=== PATIENT | female | born 1990 | race Caucasian/White ===

== ENCOUNTER 2021-01-06 14:29 | Outpatient (REF) | payer OTHER, SELFPAY ==
[2021-01-06 17:17] LABS: Syphilis Screen Nonreactive (Nonreactive)
[2021-01-07 01:47] LABS: CT PCR NOT DETECTED (Not Detect.); NG PCR NOT DETECTED (Not Detect.)
[2021-01-07 09:09] LABS: BV Int Neg Control Negative (Negative); BV Int Pos Control Positive (Positive)
[2021-01-08 07:56] LABS: ~HepC Num1 0.06 S/CO (0.00-0.79); ~Hepatitis C Antibody Nonreactive (Nonreactive)
[2021-01-08 08:42] LABS: HBsAGNum1 0.23 S/CO (0.00-0.99); HIV AB/AG Nonreactive (Nonreactive); HIV Num 1 0.06 S/CO (0.00-0.99); Hepatitis B Surface Antigen Negative (Negative)
== END 2021-01-06 14:30 | disposition home or self-care (01) ==
LOC: HO.LAB 14:29
PROVIDERS: Visit Provider Advanced Practice Midwife
DX: Z01.419 Encounter for gynecological examination (general) (routine) without abnormal findings (principal); Z11.4 Encounter for screening for human immunodeficiency virus [HIV]; Z11.3 Encounter for screening for infections with a predominantly sexual mode of transmission; Z01.84 Encounter for antibody response examination; Z20.2 Contact with and (suspected) exposure to infections with a predominantly sexual mode of transmission; E66.01 Morbid (severe) obesity due to excess calories; Z68.41 Body mass index [BMI] 40.0-44.9, adult
CPT/HCPCS: 36415; 86780; 86803; 87340; 87389; 87480; 87491; 87510; 87591; 87660; 88142

== ENCOUNTER 2021-07-03 15:58 | Emergency (ER) | payer OTHER, SELFPAY ==
--- NOTE | ~2021-07-03 | CT_ITS ---
EXAMINATION: CT HEAD WITHOUT CONTRAST CLINICAL INFORMATION: Dysarthria, rule out CVA. COMPARISON: No similar priors. TECHNIQUE: Contiguous axial imaging was performed from the skull base to vertex without intravenous administration of contrast. This CT examination was performed using dose optimization techniques as appropriate, variously including the following: *Automated exposure control *Adjustment of mA and/or kV according to patient size (this includes techniques or standardized protocols for targeted exams where dose is matched to indication/reason for exam; i.e. extremities or head) *Use of iterative reconstruction technique DLP: 786 mGy-cm FINDINGS: There is no evidence of acute intracranial hemorrhage or edematous territorial infarction. There is no abnormal attenuation within the brain parenchyma. Chapman-white matter differentiation is preserved. The ventricles are normal in size and configuration. No evidence for obstructive hydrocephalus. No abnormal mass effect or midline shift. No extra-axial fluid collections. No acute soft tissue or osseous abnormalities. Mild mucosal thickening of the paranasal sinuses. The mastoids are clear. CT/CT head/brain wo con IMPRESSION: No evidence of acute intracranial hemorrhage or edematous territorial infarction.
--- NOTE | 2021-07-03 16:20 | ED.NEUROSD ---
HPI - Neuro Symptoms/Deficit General Chief Complaint: Neuro Symptoms/Deficit Stated Complaint: Numbness Time Seen by Provider: 07/03/21 16:10 Source: patient and family Mode of arrival: ambulatory Limitations: no limitations History of Present Illness HPI Narrative: Patient with no significant medical history history under increased stress lately patient's boyfriend noticed patient unable to get the right words out since 13:30 today patient had difficulty in getting the words out but punctuation was normal. Also complaining of numbness on the right side no facial asymmetry no focal weakness patient very tearful in the ER also complaining of mild headache for last few days all over the head with questionable history of migraine Related Data Previous Rx's Medication Instructions Recorded norethindrone acetate 1 mg-ethinyl 1 tab PO DAILY 21 Days #21 tab 10/15/20 estradiol 20 mcg tablet () norethindrone 1 mg-ethinyl 1 tab PO DAILY #84 tab 01/06/21 estradiol 20 mcg ()-iron 75 mg (7) tablet ( FE 09/16 ()) fluconazole 150 mg tablet 150 mg PO DAILY #1 tab 01/13/21 (Diflucan) Allergies Allergy/AdvReac Type Severity Reaction Status Date / Time No Known Allergies Allergy Verified 01/06/21 14:34 Review of Systems Review of Systems: Yes all other systems are reviewed and are negative PMF Past Medical History Medical History Asthma Surgical History Hx of cholecystectomy Family History Family History Paternal Grandmother Thyroid cancer Maternal Grandmother Breast cancer Social History Social History Alcohol intake: current Alcohol intake frequency: holidays/special occasions only Advance Directives: No Advance Directives Information Provided: No Sexual orientation: Straight/Heterosexual Gender identity: Female Physical Exam Vital Signs: Vital Signs: Last Vital Signs Temp 98 F 07/03/21 16:25 Pulse 60 07/03/21 18:04 Resp 18 07/03/21 18:04 BP 105/64 07/03/21 18:04 Pulse Ox 96 07/03/21 18:04 Body Mass Index 0.0 Appearance: Alert. Oriented X3. No acute distress. Anxious and tearful Eyes: PERRLA, No Nystagmus ENT: Pharynx normal. Oral Mucosa moist Neck: Normal inspection. Neck supple. CVS: Normal heart rate and rhythm. Pulses normal. Respiratory: No respiratory distress. Equal air entry bilateral, no wheezing/rales/rhonchi Abdomen: Soft and nontender. Bowel sounds are present, no mass palpable, no CVA tenderness Skin: Skin warm and dry. Normal skin color. Normal skin turgor. Extremities: No lower extremity edema. No calf tenderness Neuro: Oriented X 3. No motor deficit. No sensory deficit.No cerebellar signs , cranial nerves II-XII intact patient is speaking slowly with normal punctuation symptom onset is normally some time taking time to answer MDM - Neuro Symptoms/Deficit MDM Narrative Medical decision making narrative: Patient no significant past medical history comes to the ER for difficulty in speaking with normal articulation is very tearful in the ER under increased stress no other focal deficit noticed clinically patient has psychogenic neurological symptoms patient ambulatory in the ER will do CT head. 1740 patient back to normal speaking full sentences. Nauseated vomited 2 times with increased anxiety patient denies any headache refused to get CTA head and neck feels much better now ambulatory in the ER patient advised to come back to the ER in case any focal weakness . Lab Data Result diagrams: 07/03/21 16:33 07/03/21 16:33 Labs: Lab Results 07/03/21 07/03/21 Range/Units 16:33 16:33 WBC 6.5 (4.8-10.8) X10*3/uL RBC 4.18 L (4.20-5.50) X10*6/uL Hgb 12.0 (12.0-16.0) g/dl Hct 36.2 L (37.0-47.0) % MCV 86.6 (80.0-98.0) fL MCH 28.7 (27.0-33.0) pg MCHC 33.1 (31.0-35.0) g/dl RDW 12.9 (11.0-16.0) % Plt Count 263 (160-400) X10*3/uL MPV 9.8 (9.4-12.3) fL Immature Gran % (Auto) 0.2 (0.0-0.4) % Neut % (Auto) 65.2 (45-73) % Lymph % (Auto) 26.2 (20-40) % Gregg % (Auto) 5.9 (2-11) % Eos % (Auto) 2.3 (0-4) % Baso % (Auto) 0.2 (0-2) % Lymph # (Auto) 1.7 (1.2-4.9) X10*3/uL Gregg # (Auto) 0.4 (0.1-1.2) X10*3/uL Eos # (Auto) 0.2 (0.0-0.4) X10*3/uL Baso # (Auto) 0.0 (0.0-0.2) X10*3/uL Abs Immat Gran (auto) 0.01 (0.00-0.03) X10*3/uL Absolute Neuts (auto) 4.2 (2.0-8.3) x10*3/uL Absolute Nucleated RBC 0.000 (0.0-0.012) X10*3/uL Nucleated RBC % (auto) 0.0 (0.0-0.2) /100WBC Sodium 139 (135-145) mmol/L Potassium 4.0 (3.3-5.1) mmol/L Chloride 106 (96-108) mmol/L Carbon Dioxide 24 (22-29) mmol/L Anion Gap 13 (12-20) BUN 8 L (9-16) mg/dL Creatinine 0.68 (0.5-1.4) mg/dL Estim Creat Clear Calc TNP Estimated GFR > 60 Random Glucose 108 (60-115) mg/dL Calcium 8.9 (8.4-10.2) mg/dL Beta HCG, Quant < 2 mIU/mL NIH Stroke Scale Internal: Initial- Upon Arrival Level of Consciousness: Alert Level of Consciousness Questions: Answers both questions correctly Level of Consciousness Commands: Performs both tasks correctly Best Gaze: Normal Visual: No visual loss Facial Palsy: Normal Motor Arm (Right): No drift Motor Arm (Left): No drift Motor Leg (Right): No drift Motor Leg (Left): No drift Limb Ataxia: Absent Sensory: Normal Best Language: No aphasia Dysarthia: Normal Extinction and Inattention: No abnormality Score: 0 Discharge Plan Discharge Clinical Impression: Anxiety, Dysarthria Patient Disposition: Home, Self-Care Instructions: Anxiety (ED) Additional Instructions: Rest at home Follow-up with your PCP if any concerns Report to the ER if any focal weakness Prescriptions: No Action norethindrone ac-eth estradiol [09/16 (21)] 1-20 mg-mcg tablet 1 tab PO DAILY 21 Days Qty: 21 RF: 2 fluconazole [Diflucan] 150 mg tablet 150 mg PO DAILY Qty: 1 RF: 0 norethindrone-e.estradiol-iron [09/16 (28)] 1 mg-20 mcg (21)/75 mg (7) tablet 1 tab PO DAILY Qty: 84 RF: 4 Interventions: ED Discharge Assessment Last Done: 07/03/21 18:12 Discharge Date/Time: 07/03/21 18:13
[2021-07-03 16:25] VITALS: BP 128/75; PULSE 59; RESP 18; TEMP 36.6; O2SAT 98
[2021-07-03 16:44] LABS: MANUAL DIFF FLAG NO
[2021-07-03 16:48] LABS: Basophils Percent Auto 0.2 % (0-2); Eosinophils Absolute Auto 0.2 X10*3/uL (0.0-0.4); Eosinophils Percent Auto 2.3 % (0-4); Hematocrit 36.2 % (37.0-47.0); Imm Gran Abs Auto 0.01 X10*3/uL (0.00-0.03); Imm Gran Pct Auto 0.2 % (0.0-0.4); Lymphocytes Absolute Auto 1.7 X10*3/uL (1.2-4.9); Lymphocytes Percent Auto 26.2 % (20-40); Mean Corpuscular HGB Conc 33.1 g/dl (31.0-35.0); Mean Corpuscular Hemoglobin 28.7 pg (27.0-33.0); Mean Corpuscular Volume 86.6 fL (80.0-98.0); Mean Platelet Volume 9.8 fL (9.4-12.3); Monocytes Absolute Auto 0.4 X10*3/uL (0.1-1.2); Monocytes Percent Auto 5.9 % (2-11); Neutrophils Absolute Auto 4.2 x10*3/uL (2.0-8.3); Neutrophils Percent Auto 65.2 % (45-73); Platelet Count 263 X10*3/uL (160-400); Red Blood Count 4.18 X10*6/uL (4.20-5.50); Red Cell Distribution Width 12.9 % (11.0-16.0); White Blood Count 6.5 X10*3/uL (4.8-10.8)
[2021-07-03 17:19] LABS: Anion Gap 13 (12-20); Blood Urea Nitrogen 8 mg/dL (9-16); Calcium 8.9 mg/dL (8.4-10.2); Carbon Dioxide 24 mmol/L (22-29); Chloride 106 mmol/L (96-108); Estimated Glomerular Filt Rate > 60; Glucose Random 108 mg/dL (60-115); Sodium 139 mmol/L (135-145)
[2021-07-03 17:27] LABS: HCG Quantitative < 2 mIU/mL
[2021-07-03] MEDS: Ondansetron ODT 4 MG TAB.RAPDIS TRANSLINGU (18:01)
--- NOTE | 2021-07-03 18:02 | PC.NURSE ---
patient awake and alert. skin pwd. resp even and non labored. neuros intact. denies pain. anwerings questions with ya or no. patient w/ flat affect. denies si/hi. states she feels safe at home. states she wants to be discharged. discharge paperwork reviewed with patient, pt then starting vomiting bile. physician aware
[2021-07-03 18:04] VITALS: BP 105/64; PULSE 60; RESP 18; O2SAT 96
== END 2021-07-03 18:13 | disposition home or self-care (01) ==
PROVIDERS: Emergency Provider Internal Medicine; PCP Internal Medicine
DX: F41.1 Generalized anxiety disorder (principal); R47.1 Dysarthria and anarthria; R20.0 Anesthesia of skin; R29.700 NIHSS score 0; Z79.899 Other long term (current) drug therapy
CPT/HCPCS: 36415; 70450; 80048; 84702; 85025; 99284

== ENCOUNTER → 2021-12-09 13:12 | Outpatient (BNVA) | payer OTHER, SELFPAY | PROVIDERS: Visit Provider Advanced Practice Midwife | DX: Z13.89 Encounter for screening for other disorder (principal) ==

== ENCOUNTER 2024-05-09 17:23 | Outpatient (AMB) | payer OTHER, SELFPAY ==
[2024-05-09 17:29] VITALS: BP 118/82; BMI 45.6
--- NOTE | 2024-05-09 17:29 | MHC.PC.OV ---
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 Accompanied by: Self / Same As Patient Allergies cat dander Allergy (Intermediate, Verified 05/09/24 17:36) sneezing, asthma, itch Medication List - Last Reconciled 05/09/24 by Kiya Monroy MD albuterol sulfate 90 mcg/actuation (ProAir HFA) 2 puffs inhalation Q6H PRN Tobacco use date assessed: 05/09/24 Dental Screening Dental Screen Date: 05/09/24 Did you have a dental visit in the last 12 months?: Yes Did you have a dental problem in the last 6 months where you did not have access to dental care?: No Was dental information given to patient?: Patient has dentist HPI HPI Comments History of Present Illness Details This is a 34-year-old female with morbid obesity that comes for her physical exam. She is morbidly obese with a BMI of 45.6 and would like to see weight management. Pap smear done 2020 and was normal. No chest pain or shortness on breath. [facility] Medical History (Updated 05/09/24 @ 17:52 by Kiya Monroy MD) Vertigo Asthma Surgical History Hx of cholecystectomy Family History Paternal Grandmother Thyroid cancer Maternal Grandmother Breast cancer Family/Other Mental health disorder Substance use disorder Mother Asthma Mental health disorder Lupus Father No problems noted. Social History Housing: Apartment Alcohol intake: current Alcohol intake frequency: holidays/special occasions only Alcohol type: beer Patient Tobacco Use Status: Never used Tobacco e-Cigarette/Vaping Use: Never Used Second Hand Smoke Exposure: No service: No Current occupational status: employed Current occupational exposures/hazards: No Sexual orientation: Straight/Heterosexual Gender identity: Female Cognitive needs: No Hearing needs: No Vision needs: Yes Female Reproductive History Menstrual Age of Menarche: 15 Questionnaire PHQ-9 Over the last 2 weeks, how often have you been bothered by any of the following problems? 1. Little interest or pleasure in doing things: not at all 2. Feeling down, depressed, or hopeless: not at all 3. Trouble falling or staying asleep, or sleeping too much: several days 4. Feeling tired or having little energy: several days 5. Poor appetite or overeating: several days 6. Feeling bad about yourself - or that you are a failure or have let yourself or your family down: not at all 7. Trouble concentrating on things, such as reading the newspaper or watching television: not at all 8. Moving or speaking so slowly that other people could have noticed. Or the opposite - being so fidgety or restless that you have been moving around a lot more than usual: not at all 9. Thoughts that you would be better off or of hurting yourself in some way: not at all Total score: 3 Depression Screening Interpretation: Positive Depression Screening Follow-up: Existing condition and Follow-up Visit Requested Depression Screening Done: Yes 13117 - PHQ-9 Billing: Yes Source: Developed by Drs. Alex Bowers, Lauren Mason, Praveen Ovalle and colleagues, with an educational jeff from [employer]. Thrive Questionnaire Date Thrive assessed: 05/09/24 I am a: Patient What is your living situation today?: I have a steady place to live Within the past 12 months, did the food you bought not last and you didn't have the money to get more?: Never true Within the past 12 months, did you worry whether your food would run out before you got money to buy more?: Never true Do you have trouble paying for medicines?: No Do you have trouble getting transportation to medical appointments?: No Do you have trouble paying your heating and electricity bill?: No Do you have trouble taking care of your child, family member or friend?: No Do you have trouble with day-to-day activities such as bathing, preparing meals, shopping, managing finances, etc.?: No Are you currently unemployed and looking for a job?: No Are you interested in more education?: I choose not to answer this question Please select the resources that you would like help with: None Currently or been in a relationship where the following occur: No concerns reported THRIVE Score: 0 AUDIT C Alcohol Use Questionnaire (AUDIT-C) 1. How often do you have a drink containing alcohol?: Monthly or less 2. How many drinks containing alcohol do you have on a typical day when you are drinking?: 3 or 4 3. How often do you have six or more drinks on one occasion?: Never Total Score: 2 Score Reviewed/Action Taken: No MANOJ-7 AMB Questionnaire MANOJ-7 Date MANOJ - 7 assessed: 05/09/24 Feeling nervous, anxious, or on edge: 1 = Several days Not being able to stop or control worryin = Several days Worrying too much about different things: 1 = Several days Trouble relaxin = Not at all Being so restless that it is hard to sit still: 0 = Not at all Becoming easily annoyed or irritable: 1 = Several days Feeling afraid as if something awful might happen: 0 = Not at all Total MANOJ-7 score (0-4 normal; 5-9 mild; 10-14 moderate; 15-21 severe): 4 Source: Developed by Drs. Alex Bowers, Lauren Mason, Praveen Oavlle and colleagues, with an educational jeff from [employer]. MANOJ-7 Assessment Billing MANOJ-7 Assessment Tool: MANOJ-7 Assessment 10157 Review of Systems Const All systems reviewed & are unremarkable except as noted in HPI and below Card Denies chest pain at rest, Denies chest pain with activity, Denies edema, Denies irregular heart rhythm, Denies claudication, Denies dyspnea, Denies dyspnea on exertion, Denies orthopnea, Denies paroxysmal nocturnal dyspnea and Denies slow heart rate Resp Denies cough, Denies dyspnea and Denies dyspnea on exertion GI Denies abdominal pain, Denies change in bowel habits, Denies excessive flatus, Denies nausea and Denies vomiting Denies urinary incontinence, Denies urinary hesitancy and Denies urinary urgency Musc Denies abnormal gait, Denies atrophy, Denies deformity and Denies limited range of motion Skin/Breast Denies bleeding lesions, Denies changing lesions and Denies rash Neuro Denies abnormal gait, Denies behavioral changes and Denies lack of coordination Psych Denies behavioral changes Physical exam (Primary Care) Vital Signs: Last Vital Signs BP 118/82 05/09/24 17:29 BMI result Body Mass Index 45.6 BMI Assessment/Plan discussion: High BMI High, discussed plan: lifestyle, weight reduction, dietary and physical activity Tobacco/Smoking Status: Tobacco use Status Tobacco use date assessed 05/09/24 05/09/24 17:34 Patient Tobacco Use Status Never used Tobacco 05/09/24 17:34 e-Cigarette/Vaping Use Never Used 05/09/24 17:34 PHQ-9: PHQ-9 Score PHQ-9: Total score 3 05/09/24 17:34 Depression Screening Interpretation: Positive Depression Screening Follow-up: Existing condition and Follow-up Visit Requested Thrive Assessment: Date of Thrive Assessment Date Thrive assessed 05/09/24 05/09/24 17:34 Currently or been in a relationship where the following occur: No concerns reported [facility] Head: Yes normal to inspection, Yes normocephalic and Yes atraumatic Ears: external ears normal Eyes General: appearance normal, both eyes and all related structures Eyelids: Yes eyelids normal Conjunctivae: conjunctivae normal Neck Neck: Yes normal visual inspection and Yes supple Resp Effort & Inspection: normal respiratory effort Auscultation: clear to auscultation bilaterally Cardio Jugular venous distension: no JVD Rate: regular rate Rhythm: regular rhythm Heart sounds: S1 normal heart sound present and S2 normal heart sound present GI Inspection: Yes normal to inspection Palpation (GI): Soft to palpation and nontender Auscultation: normal bowel sounds Skin General skin exam: no rashes or lesions noted Neuro General: no focal motor deficits Extrem General: Yes full ROM Psych Appearance: grossly normal Assessment and Plan Assessment & Plan (1) Physical exam: Code(s): Z00.00 - Encounter for general adult medical examination without abnormal findings Plan: Repeat in a year. (2) Obesity, morbid, BMI 40.0-49.9: Code(s): E66.01 - Morbid (severe) obesity due to excess calories Plan: Referred to weight management. BMI goal is less than 30. Orders: Orders Lipid Panel Today Z00.00 - Encounter for general adult medical examination without abnormal findings Comprehensive [place]. Panel Fast Today Z00.00 - Encounter for general adult medical examination without abnormal findings Referrals Medical Weight Management Referral E66.01 - Morbid (severe) obesity due to excess calories Medications: New cholestyramine-aspartame 4 gram (Cholestyramine Light) no meds 1 hr before/4-6 hr after dose 4 grams PO DAILY 30 days PRN 231 grams 2RF diarrhea Coding Level of Care Code Est Pt Prev Care 18-39y(78088) Diagnoses Physical exam Z00.00 Obesity, morbid, BMI 40.0-49.9 E66.01 Additional Codes MANOJ-7 Assessment Billing - MANOJ-7 Assessment Tool: MANOJ-7 Assessment 37964 ([id number]) Time Spent (min) 30
== END 2024-05-09 17:53 | disposition home or self-care (01) ==
PROVIDERS: PCP Internal Medicine; Visit Provider Internal Medicine
DX: Z00.00 Encounter for general adult medical examination without abnormal findings (principal); E66.01 Morbid (severe) obesity due to excess calories; Z68.42 Body mass index [BMI] 45.0-49.9, adult
CPT/HCPCS: 99395

== ENCOUNTER → 2024-05-22 14:27 | Outpatient (BNVA) | payer OTHER, SELFPAY | PROVIDERS: PCP Internal Medicine; Visit Provider Surgery ==

== ENCOUNTER → 2024-06-05 08:22 | Outpatient (BNVA) | payer OTHER, SELFPAY | PROVIDERS: PCP Internal Medicine; Visit Provider Surgery ==

== ENCOUNTER 2024-06-07 08:18 | Outpatient (AMB) | payer OTHER, SELFPAY ==
--- NOTE | 2024-06-05 09:56 | A.OFFVIS_ITS ---
VS Expanded 06/07/24 13:27 Height 5 ft 8 in Weight 300 lb 6 oz BMI 45.7 Body Fat % 48.7 Body Fat Mass 146.4 Fat Free Mass 154.2 Visceral Fat Rating 14 Body Water % 36.8 Body Water Mass 110.4 Basal Metabolic Rate/Score 2,236 Intake Visit Reasons: [employer] BMI 45.7 Allergies cat dander Allergy (Intermediate, Verified 06/07/24 13:13) sneezing, asthma, itch Medication List - Last Reconciled 06/07/24 by Torito Leonardo MD albuterol sulfate 90 mcg/actuation (ProAir HFA) 2 puffs inhalation Q6H PRN HPI HPI [employer] SWL BMI 45.7: Details: Start time: 1pm, End time: 1.45pm ?I spent 40 minutes speaking with the patient on the phone plus an additional 5 minutes reviewing and updating records for a total of 45 minutes HPI Comments Details: Previous weight loss efforts: self diets and exercise Wakes up: 5.30am, Sleeps: 10pm Breakfast: 6.20am (2 eggs and/or turkey henao) Lunch: 2pm (Tacos, peanut butter sandwich, apples) Dinner: 7.30pm (Grilled cheese, pasta, salad) Snacks: maybe on weekends at 10am (Pretzel or apple), maybe at 4pm Exercise: has home treadmill Fluids: Coffee: none, tea: none, soda: regular Coke one/day, juice: cranberry occasionally, ETOH: 1/month PFSH Medical History (Updated 06/07/24 @ 13:15 by Torito Leonardo MD) GERD (gastroesophageal reflux disease) Morbid obesity Vertigo Asthma Surgical History Hx of cholecystectomy Family History (Updated 05/22/24 @ 14:44 by Viktoria Jennings CMA) Paternal Grandmother Thyroid cancer Maternal Grandmother Breast cancer Family/Other Mental health disorder Substance use disorder Mother Asthma Mental health disorder Lupus Father No problems noted. Son Acute Lyme disease Social History (Updated 05/22/24 @ 14:42 by Viktoria Jennings CMA) Housing: Apartment Alcohol intake: current Alcohol intake frequency: holidays/special occasions only Alcohol type: beer Patient Tobacco Use Status: Never used Tobacco e-Cigarette/Vaping Use: Never Used Second Hand Smoke Exposure: No service: No Current occupational status: employed Current occupational exposures/hazards: No Sexual orientation: Straight/Heterosexual Gender identity: Female Cognitive needs: No Hearing needs: No Vision needs: Yes Female Reproductive History Menstrual Age of Menarche: 15 Telehealth Telehealth Telehealth Platform: Telephone Location of provider rendering services: practice address Location of patient: address on file Patient Identification confirmed using: Name, : Yes Telehealth method: voice only Patient verbally consented to treatment: Yes Patient verbally consented to billing insurance company: Yes Patient informed of any privacy concerns related to visit: Yes Minutes spent on Phone/Video with Pt.: 45 Assessment & Plan Assessment & Plan (1) Morbid obesity: Code(s): E66.01 - Morbid (severe) obesity due to excess calories Category: Medical Plan: 1.? Plan for lap sleeve gastrectomy. If diaphragmatic or ventral hernias are present at time of surgery, these will be repaired laparoscopically as well. Risks and complications include possible conversion to an open procedure, anastomotic leak, bleeding requiring transfusion, small bowel obstruction, , DVT and pulmonary embolism, cardiac, or pulmonary complications, as senior care complications such as anastomotic ulcer, insufficient weight loss and vitamin deficiencies. I emphasized the importance of close follow-up, adherence to instructions and good communication. 2. You will receive a link of our software bob to generate an individualized n utritional and exercise plan specific for you. Please send me a screenshot of the plans you will generate Meal to include lean meat (beef, fish, pork, turkey, chicken), or amharic yogurt, or egg whites, or beans with a salad with olive oil and fruits (berries, pears, apples, kiwi). Avoid salt, breads, potatoes, rice, pasta, desserts. ?3. If you choose shakes, each shake would be drunk slowly, like coffee in a period of 2 hours. ?4. If you choose bars, cut each bar in 4 pieces and eat each piece in 30min ?to make each bar last 2 hours. ?5. I emphasized the importance of measuring accurately the food portion and measure it when serving the food in plate ?6. The meal portions include a specific number of forks of meat and salad. You always eat the meat portion but you can replace up to half of salad/vegetables portion with rice, potatoes or pasta, or a fruit ?if you like. The less you do it the better weight loss will be. ?7. One full-size fork is what it can be scooped on the fork without falling aside and not what can be bit with the fork. Use regular forks like those you find in a typical restaurant. ?8.? Please send me weight measurements as soon as possible and then once a w lower [place]. Always include your diet and exercise plan. 9. The best choice would be to purchase a stationary bike, elliptical or treadmill at home that can track calories. Let me know if you do so I can give you an exercise plan. ?10.?It is important of avoiding and for at least 18 months postoperatively and has been discussed at the infosession. ?11. Goal is to lose at least 1.5-2lbs per week ?12. Goal to lose 10% of your weight before surgery, which is about 30lbs. Ultimate weight goal: 270lbs before surgery 13. Please follow the diet plan exactly without any change. If you don't like something about the plan or you feel hungry you need to communicate with me so I can help you revise the plan. You should not change the plan yourself. 14. To be scheduled for EGD to assess the stomach's anatomy. The possibility of biopsies was discussed. Patient needs to avoid use of NSAIDs and aspirin for 1 week prior to EGD. Risks of perforation and bleeding was discussed with the patient. This will be an outpatient procedure with IV sedation. Orders: Orders Hemoglobin A1c Today E66.01 - Morbid (severe) obesity due to excess calories, K21.9 - Gastro-esophageal reflux disease without esophagitis Complete Blood Count Auto Diff Today E66.01 - Morbid (severe) obesity due to excess calories, K21.9 - Gastro-esophageal reflux disease without esophagitis Lipid Panel Today E66.01 - Morbid (severe) obesity due to excess calories, K21.9 - Gastro-esophageal reflux disease without esophagitis IRON PROFILE Today E66.01 - Morbid (severe) obesity due to excess calories, K21.9 - Gastro-esophageal reflux disease without esophagitis Vitamin B12 and Folate Today E66.01 - Morbid (severe) obesity due to excess calories, K21.9 - Gastro-esophageal reflux disease without esophagitis Vitamin B1 Today E66.01 - Morbid (severe) obesity due to excess calories, K21.9 - Gastro-esophageal reflux disease without esophagitis Vitamin A Today E66.01 - Morbid (severe) obesity due to excess calories, K21.9 - Gastro-esophageal reflux disease without esophagitis TSH reflex Free T4 Today E66.01 - Morbid (severe) obesity due to excess calories, K21.9 - Gastro-esophageal reflux disease without esophagitis Vitamin D 25-OH Total Today E66.01 - Morbid (severe) obesity due to excess calories, K21.9 - Gastro-esophageal reflux disease without esophagitis ECG 12 lead EKG Today E66.01 - Morbid (severe) obesity due to excess calories, K21.9 - Gastro-esophageal reflux disease without esophagitis FL upper GI w air Today E66.01 - Morbid (severe) obesity due to excess calories, K21.9 - Gastro-esophageal reflux disease without esophagitis Insulin Today E66.01 - Morbid (severe) obesity due to excess calories, K21.9 - Gastro-esophageal reflux disease without esophagitis H Pylori Breath Test Today E66.01 - Morbid (severe) obesity due to excess calories, K21.9 - Gastro-esophageal reflux disease without esophagitis Comprehensive Met. Panel Today E66.01 - Morbid (severe) obesity due to excess calories, K21.9 - Gastro-esophageal reflux disease without esophagitis Zinc Today E66.01 - Morbid (severe) obesity due to excess calories, K21.9 - Gastro-esophageal reflux disease without esophagitis C Reactive Protein Today E66.01 - Morbid (severe) obesity due to excess calories, K21.9 - Gastro-esophageal reflux disease without esophagitis Ferritin Today E66.01 - Morbid (severe) obesity due to excess calories, K21.9 - Gastro-esophageal reflux disease without esophagitis US abdomen comp w elastography Today E66.01 - Morbid (severe) obesity due to excess calories, K21.9 - Gastro-esophageal reflux disease without esophagitis XR chest 2V Today E66.01 - Morbid (severe) obesity due to excess calories, K21.9 - Gastro-esophageal reflux disease without esophagitis Referrals Behavioral Health Referral E66.01 - Morbid (severe) obesity due to excess calories, K21.9 - Gastro-esophageal reflux disease without esophagitis Nutrition/Dietitian Referral E66.01 - Morbid (severe) obesity due to excess calories, K21.9 - Gastro-esophageal reflux disease without esophagitis
[2024-06-07 13:27] VITALS: BMI 45.7
== END 2024-06-07 13:47 | disposition home or self-care (01) ==
PROVIDERS: PCP Internal Medicine; Visit Provider Surgery
DX: E66.01 Morbid (severe) obesity due to excess calories (principal)
CPT/HCPCS: 99204

== ENCOUNTER → 2024-06-07 08:18 | Outpatient (BNVA) | payer OTHER, SELFPAY | PROVIDERS: PCP Internal Medicine; Visit Provider Surgery ==

== ENCOUNTER 2024-06-28 08:40 | Outpatient (REF) | payer OTHER, SELFPAY ==
--- NOTE | ~2024-06-28 | XR_ITS ---
EXAMINATION: XR CHEST 2 VIEWS CLINICAL INFORMATION: Morbid (severe) obesity due to excess calories E66.01. COMPARISON: None available TECHNIQUE: 2 views of the chest were obtained. FINDINGS: No significant abnormality is noted involving the heart, lungs, mediastinum, bony thorax or soft tissues. XR/XR chest 2V IMPRESSION: Unremarkable examination. Electronically signed by: Tyree Dey MD 08/23/2024 11:53 AM [facility]
--- NOTE | ~2024-06-28 | US_ITS ---
EXAMINATION: US COMPLETE ABDOMEN WITH LIVER ELASTOGRAPHY CLINICAL INFORMATION: Morbid obesity COMPARISON: CT abdomen pelvis 09/17/2019 TECHNIQUE: Real-time imaging of the abdominal viscera. Noninvasive ultrasound liver fibrosis assessment is performed using [place] ElastPQ point quantification shear wave elastography (pSWE) with a C5-2 MHz transducer. Multiple elastography samples are obtained. FINDINGS: PANCREAS: The visualized pancreatic head and body are normal in appearance. The remainder of the pancreas is obscured from visualization by the overlying bowel gas. ABDOMINAL AORTA: No aortic aneurysm is seen. INFERIOR VENA CAVA: Visualized portions are normal. LIVER: The liver demonstrates normal size and contour with increased. No focal lesion or intrahepatic biliary duct dilatation. The right lobe measures 14.5 cm in length. The left lobe measures 7.8 cm in length. Portal flow is towards the liver (hepatopetal). Shear wave liver elastography median stiffness is 1.84 m/s (reference: normal median stiffness is 1.3 m/s or less). IQR/median stiffness to assess sampling precision is 0.05 (reference: good quality data set is IQR/median stiffness of 0.15 or less). GALLBLADDER: The gallbladder is physiologically distended without evidence of stones, sludge, polyps, wall thickening or pericholecystic fluid. COMMON BILE DUCT: Normal in caliber measuring 0.8 cm in diameter. RIGHT KIDNEY: No hydronephrosis. No renal calculi or focal parenchymal lesions. The kidney measures 11.8 cm in maximum dimension. LEFT KIDNEY: No hydronephrosis. No renal calculi or focal parenchymal lesions. The kidney measures 11.7 cm in maximum dimension. SPLEEN: Mild splenic enlargement at 12.7 cm in maximum dimension. FREE FLUID: None seen. US/US abdomen comp w elastography IMPRESSION: 1. Echogenic liver suggesting steatosis with mild splenomegaly 2. Liver elastography: Measurements are suggestive of compensated advanced chronic liver disease but need further test for confirmation. REFERENCE: Society of Radiologists in Ultrasound Liver Stiffness Thresholds (2020): LIVER STIFFNESS THRESHOLDS: *Liver Stiffness equal or less than 1.3 m/s: High probability of being normal. *Liver Stiffness less than 1.7 m/s: In the absence of other known clinical signs, rules out compensated advanced chronic liver disease. *Liver Stiffness 1.7-2.1 m/s: Suggestive of compensated advanced chronic liver disease but need further test for confirmation. *Liver Stiffness over 2.1 m/s: Rules in compensated advanced chronic liver disease. *Liver Stiffness over 2.4 m/s: Suggestive of clinically significant portal hypertension. QUALITY OF DATA SET: *IQR/Median value equal or less than 0.15 implies a quality data set. *IQR/Median value over 0.15 implies a poor quality data set. SIGNIFICANT CHANGE FROM PRIOR EXAM: Significant change if liver stiffness measurement is 10% or greater from prior exam. OTHER CONSIDERATIONS: The stage of liver fibrosis may be overestimated in the setting of acute hepatitis, liver inflammation, elevated liver function tests, hepatic vascular congestion, obstructive cholestasis, non-fasting state, and infiltrative diseases such as amyloidosis and lymphoma. In some patients with NAFLD, the liver stiffness thresholds for compensated advanced chronic liver disease may be lower. In causes other than viral hepatitis and NAFLD, liver stiffness thresholds are not well established. Electronically signed by: David Sutton MD 09/04/2024 01:08 PM [facility] [place]
[2024-06-28 09:49] LABS: MANUAL DIFF FLAG NO
[2024-06-28 10:35] LABS: Basophils Percent Auto 0.8 % (0-2); Eosinophils Absolute Auto 0.1 X10*3/uL (0.0-0.4); Eosinophils Percent Auto 2.6 % (0-4); Hematocrit 36.8 % (37.0-47.0); Hemoglobin 12.3 g/dl (12.0-16.0); Imm Gran Abs Auto 0.01 X10*3/uL (0.00-0.03); Imm Gran Pct Auto 0.2 % (0.0-0.4); Lymphocytes Absolute Auto 1.4 X10*3/uL (1.2-4.9); Lymphocytes Percent Auto 28.1 % (20-40); Mean Corpuscular HGB Conc 33.4 g/dl (31.0-35.0); Mean Corpuscular Volume 83.6 fL (80.0-98.0); Mean Platelet Volume 9.5 fL (9.4-12.3); Monocytes Absolute Auto 0.3 X10*3/uL (0.1-1.2); Monocytes Percent Auto 6.7 % (2-11); Neutrophils Absolute Auto 3.1 x10*3/uL (2.0-8.3); Neutrophils Percent Auto 61.6 % (45-73); Platelet Count 284 X10*3/uL (160-400); Red Cell Distribution Width 13.2 % (11.0-16.0); White Blood Count 5.1 X10*3/uL (4.8-10.8)
[2024-06-28 11:02] LABS: Estimated Average Glucose 105 mg/dL; Hemoglobin A1c % 5.3 % (<6.0); Total Hemoglobin (HGBA1C) 2854.5347 umol/L
[2024-06-28 11:52] LABS: Folate 12.7 ng/mL (> or = 4.0); Vitamin B12 276 pg/mL (200-900)
[2024-06-28 11:53] LABS: Ferritin 123 ng/mL (10-122); Insulin 11 uU/mL (2-29); Vitamin D 25-OH Total 20.5 ng/mL (>30)
[2024-06-28 11:56] LABS: Anion Gap 13 (12-20)
[2024-06-28 12:01] LABS: Alanine Aminotransferase 14 U/L (0-31); Alkaline Phosphatase 56 U/L (39-117); Aspartate Amino Transferase 18 U/L (5-31); Bilirubin Total 1.3 mg/dL (0.0-1.0); Blood Urea Nitrogen 10 mg/dL (9-16); C Reactive Protein 0.69 mg/dL (< or = 0.50); Calcium 9.5 mg/dL (8.4-10.2); Carbon Dioxide 21 mmol/L (22-29); Chloride 109 mmol/L (96-108); Cholesterol 119 mg/dL (<200); Estimated Glomerular Filt Rate > 60; Glucose Random 107 mg/dL (60-115); HDL Cholesterol 31 mg/dL (>40); Iron 74 mcg/dL (30-160); LDL Cholesterol Calculated 76 mg/dL (<100); Percent Iron Saturation 25 % (15-50); Potassium 4.2 mmol/L (3.3-5.1); Sodium 139 mmol/L (135-145); Total Iron Binding Capacity 296 mcg/dL (228-428); Total Protein 7.1 g/dL (6.5-8.0); Triglycerides 61 mg/dL (<150); Unsaturated Iron Binding 222 ug/dL
[2024-07-02 11:54] LABS: Zinc 65 mcg/dL (60-130)
[2024-07-06 16:14] LABS: Vitamin A 33 mcg/dL (38-98)
[2024-07-07 15:33] LABS: Vitamin B1 11 nmol/L (8-30)
== END 2024-06-28 08:41 | disposition home or self-care (01) ==
LOC: HO.US 08:40
PROVIDERS: PCP Internal Medicine; Visit Provider Surgery
DX: E66.01 Morbid (severe) obesity due to excess calories (principal); K21.9 Gastro-esophageal reflux disease without esophagitis
CPT/HCPCS: 36415; 71046; 76700; 76981; 80053; 80061; 82306; 82607; 82728; 82746; 83036; 83525; 83540; 84425; 84443; 84590; 84630; 85025; 86140

== ENCOUNTER 2024-07-29 09:18 | Outpatient (AMB) | payer OTHER, SELFPAY ==
--- NOTE | 2024-07-29 09:05 | A.OFFWM_ITS ---
Intake Intake Visit Reasons: VIDEO BH Intake Allergies cat dander Allergy (Intermediate, Verified 06/07/24 13:13) sneezing, asthma, itch PFSH Medical History (Updated 07/08/24 @ 21:34 by Torito Leonardo MD) GERD (gastroesophageal reflux disease) Morbid obesity Vertigo Asthma Surgical History Hx of cholecystectomy Family History (Updated 05/22/24 @ 14:44 by Viktoria Jennings OFFICE TECHNOLOGIST) Paternal Grandmother Thyroid cancer Maternal Grandmother Breast cancer Family/Other Mental health disorder Substance use disorder Mother Asthma Mental health disorder Lupus Father No problems noted. Son Acute Lyme disease Social History (Updated 05/22/24 @ 14:42 by Viktoria Jennings CMA) Housing: Apartment Alcohol intake: current Alcohol intake frequency: holidays/special occasions only Alcohol type: beer Patient Tobacco Use Status: Never used Tobacco e-Cigarette/Vaping Use: Never Used Second Hand Smoke Exposure: No service: No Current occupational status: employed Current occupational exposures/hazards: No Sexual orientation: Straight/Heterosexual Gender identity: Female Cognitive needs: No Hearing needs: No Vision needs: Yes Female Reproductive History Menstrual Age of Menarche: 15 Behavioral Health Assessment Weight Management Therapy Therapy Notes Details PT is a years old F/M, who presents for a visit to complete assessment as part of surgical weight loss program. PT presents for weight-loss surgery as an effort to became healthier and happier as she doesn't feel good anymore and because she has done several things for weight-loss with poor to little sucess. She wants her body to match grossman she feels inside and how she sees herself on her head. Presenting Concerns Referral Source P-provider. Client had initial visit with Dr Ventura on 06/05/2024 Her PCP initiallyreferred her to the program Reason for referral Completion of behavioral health assessment as part of process for weight-loss surgery. Precipitating Event Obesity. Initial weight 307Lbs. Living Situation Current Living Situation Rent At risk of losing current housing? No Satisfied with current living situation? Yes Comments She's in the process of buying a home. PT lives with her 12 y/o son and fiance. Food/Weight/Diet Expectations of change Initial goal to lose 10% of your weight before surgery, which is about 30lbs. Ultimate weight goal: 270lbs before surgery. PT started the program at 307Lbs, per weight check note she was 300Lbs on 06/05/2024. Todays' weight: 296Lbs. - Meal plan: 2 shakes, 2 bars and 1 meal. Exercise Plan: treadmill, 1 Hr at day. Social History Family history and relationship PT has been with mar for about 4 years and they engaged in November. She has a 12 y/o son Has 2 siblings and 1 step-sister. Mother is alive, mom re- 2 years ago and they have a very kathryn relationship with her. Parents got when she was around 4 years old. Her dad lives in [place] and she hears from her once at year. PT reports she is very close to her siblings and step-mother and some cousins, but not that close to her mother or maternal grandmother. 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 Social support Fiance. Cultural/Ethnic information . PT raised in [place], [place]. Legal Involvement and History Current or historical involvement with the legal system? None reported Education Highest grade completed HS. Finished a certificate program in dental assisting. 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 Preferred learning style Learn by doing Currently enrolled in educational program? Yes (Dental hygiene program. She ) Interested in further educational program? No Educational Interests/Skills Dental hygienist. 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 ) Wants help to find employment? No Meaningful activities Outdoor activities, getaways, family activities. Denies having hobbies on her own. Financial Situation Describe current financial situation Comfortable Financial assistance? Child Support Service Service? No Mental Health and Addiction Treatment Current/Past substance abuse? No Comments Alcohol: usually socially. 1-2 x month. 2-4 drinks. Cigarettes/Tobacco: none Cannabis/Edibles: None Current/Past addictive behavior concerns? No Psychiatric history PT is not in therapy at this time, but was in the past. Last time in [id number] to cope with a difficult break up and son's challenges. PT reports some trauma events growing up. She would like to go back to therapy to work on increased stress and process family grief due to broken relationships. Denies ever been hospitalized or in crisis for BH. Denies any past or recent safety concerns around SI/SA, self-harm or other-harm. Trauma/Abuse History History of trauma? 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 PT not cleared yet as assessment is not finished. Next visit: 08/23/2024 at 2pm, telehealth. Telehealth Telehealth Telehealth Platform: [facility] Location of provider rendering services: other Location of patient: address on file Patient Identification confirmed using: Name, : Yes Telehealth method: voice only Patient verbally consented to treatment: Yes Patient verbally consented to billing insurance company: Yes Patient informed of any privacy concerns related to visit: Yes Minutes spent on Phone/Video with Pt.: 55 Coding Level of Care Code New Pt Tele Psy Diag Eval (69105) Patient Type New Diagnoses Trauma and stressor-related disorder F43.9 Time Spent (min) 55
== END 2024-07-29 10:06 | disposition home or self-care (01) ==
LOC: HO.HBST 09:18
PROVIDERS: PCP Internal Medicine; Visit Provider Counselor Mental Health
DX: F43.9 Reaction to severe stress, unspecified (principal)
CPT/HCPCS: 90791

== ENCOUNTER 2024-08-14 06:31 | Day surgery (SDC) | payer OTHER, SELFPAY ==
[2024-08-12 08:00] VITALS: BMI 45.6
--- NOTE | 2024-08-12 13:30 | HO.ANESPROP2 ---
Documented by User: Lucretia Reed NP 08/12/24 13:30 HPI - Anesthesia Eval Consult details Narrative: 34yo F for Upper Endoscopy PMFSH Active Problems Active Problems: All Active Problems Vitamin A deficiency (Acute) Vitamin B12 deficiency (Acute) Vitamin D deficiency (Acute) GERD (gastroesophageal reflux disease) (Acute) Morbid obesity (Acute) Physical exam (Acute) control counseling (Acute) Asthma (Acute) Vertigo (Acute) Sinusitis, acute (Acute) Headache (Acute) Counseling for control, oral contraceptives (Acute) Obesity, morbid, BMI 40.0-49.9 (Acute) Cervical cancer screening (Acute) Well woman exam with routine gynecological exam (Acute) Potential exposure to STD (Acute) Past Medical History Medical History GERD (gastroesophageal reflux disease) Morbid obesity Vertigo Asthma Family History Family History Paternal Grandmother Thyroid cancer Maternal Grandmother Breast cancer Family/Other Mental health disorder Substance use disorder Mother Asthma Mental health disorder Lupus Father No problems noted. Son Acute Lyme disease Surgical History Surgical History Hx of cholecystectomy Social History Social History Housing: Apartment Alcohol intake: current Alcohol intake frequency: holidays/special occasions only Alcohol type: beer Patient Tobacco Use Status: Never used Tobacco e-Cigarette/Vaping Use: Never Used Second Hand Smoke Exposure: No Use of substances other than those prescribed or required for medical reasons: No Are you DNR?: No Advance Directives: No Advance Directives Information Provided: Yes Nutrition Risks: No Nutritional Risk service: No Current occupational status: employed Current occupational exposures/hazards: No Sexual orientation: Straight/Heterosexual Gender identity: Female Cognitive needs: No Hearing needs: No Vision needs: Yes Meds Allergies Allergy/AdvReac Type Severity Reaction Status Date / Time cat dander Allergy Intermediate sneezing, Verified 06/07/24 13:13 asthma, itch Home Medications ?Medication ?Instructions ?Recorded ?Confirmed ?Last Taken ?Type albuterol sulfate 90 mcg/actuation 2 puff inhalation Q6H PRN 08/19/21 06/07/24 Unknown History aerosol inhaler (ProAir HFA) Exam Height,Weight and Vital Signs: Height 5 ft 8 in Weight 136.078 kg Assessment and Plan Assessment Anesthesia Assessment: Chart Reviewed Documented by User: Holly Hoover MD 08/14/24 07:45 [facility] Active Problems Active Problems: All Active Problems Vitamin A deficiency (Acute) Vitamin B12 deficiency (Acute) Vitamin D deficiency (Acute) GERD (gastroesophageal reflux disease) (Acute) Morbid obesity (Acute) Physical exam (Acute) control counseling (Acute) Asthma (Acute) Vertigo (Acute) Sinusitis, acute (Acute) Headache (Acute) Counseling for control, oral contraceptives (Acute) Obesity, morbid, BMI 40.0-49.9 (Acute) Cervical cancer screening (Acute) Well woman exam with routine gynecological exam (Acute) Potential exposure to STD (Acute) Denies UZAIR Past Medical History Medical History GERD (gastroesophageal reflux disease) Morbid obesity Vertigo Asthma Family History Family History Paternal Grandmother Thyroid cancer Maternal Grandmother Breast cancer Family/Other Mental health disorder Substance use disorder Mother Asthma Mental health disorder Lupus Father No problems noted. Son Acute Lyme disease Family history of problems with anesthesia: No Surgical History Surgical History Hx of cholecystectomy History of Problems with Anesthesia: No Social History Social History Housing: Apartment Alcohol intake: current Alcohol intake frequency: holidays/special occasions only Alcohol type: beer Patient Tobacco Use Status: Never used Tobacco e-Cigarette/Vaping Use: Never Used Second Hand Smoke Exposure: No Use of substances other than those prescribed or required for medical reasons: No Are you DNR?: No Advance Directives: No Advance Directives Information Provided: Yes Nutrition Risks: No Nutritional Risk [facility] service: No Current occupational status: employed Current occupational exposures/hazards: No Sexual orientation: Straight/Heterosexual Gender identity: Female Cognitive needs: No Hearing needs: No Vision needs: Yes Meds Allergies Allergy/AdvReac Type Severity Reaction Status Date / Time cat dander Allergy Intermediate sneezing, Verified 06/07/24 13:13 asthma, itch Home Medications ?Medication ?Instructions ?Recorded ?Confirmed ?Last Taken ?Type albuterol sulfate 90 mcg/actuation 2 puff inhalation Q6H PRN 08/19/21 06/07/24 Unknown History aerosol inhaler (ProAir HFA) Exam Height,Weight and Vital Signs: Height 5 ft 8 in Weight 136.078 kg Vital Signs Temp Pulse Resp BP Pulse Ox O2 Del Method 08/14/24 07:02 98.4 F 72 16 119/66 97 Room Air Pertinent Lab Results Pertinent Lab Results: Lab Results 08/14/24 Range/Units 06:50 Urine Test NEGATIVE (NEGATIVE) Airway Mallampati Class: II TM Dist: >3cm Neck ROM: Full Loose/Missing/Broken Teeth: No Heart: RRR Lungs: CTAB Assessment and Plan Assessment Anesthesia Assessment: Anesthesia Plan Discussed and Chart Reviewed Final Anesthetic Review Family History of Problems with Anesthesia: No History of Problems with Anesthesia: No NPO: Yes ASA Class: III Final Preanesthetic Review: No Changes in Pt Med Stat, Meds/Allgs Chart Reviewed, Consent Obtained/Reviewed and Anes Risks/Benef Reviewed Patient Risk: Intermediate Procedure Risk: Low Assessment/Block/Sedation in SS: Assess/Block/Sedation-SS Anesthetic Plan Anesthetic Plan: TIVA Disposition: Standard PACU
[2024-08-14 06:56] VITALS: BMI 45.1
[2024-08-14 07:02] VITALS: BP 119/66; PULSE 72; RESP 16; TEMP 36.9; O2SAT 97
[2024-08-14 07:15] LABS: UPreg QC Valid YES; Urine Pregnancy NEGATIVE (NEGATIVE)
[2024-08-14] MEDS: Lactated Ringers 1,000 ML 80 ML IVCONT (07:21)
--- NOTE | 2024-08-14 07:29 | MHC.SHP ---
Pre-Procedural Eval Section A - 24 Hr Update-Section A only Date of Service: 08/14/24 The patient is an INPATIENT: No The patient has been examined within 24 hours of the surgical procedure. The History & Physical has been completed within 30 days and I have reviewed it.: Yes Section B - Complete if H&P > 30 days Chief Complaint: Morbid (severe) obesity due to excess calories Relevant Family History (Specify if Yes): No Relevant Social History: None Present Medications: None Medical History: No relevant PMH History of Previous Operations: No relevant previous surgery Allergies: Allergies Allergy/AdvReac Type Severity Reaction Status Date / Time cat dander Allergy Intermediate sneezing, Verified 06/07/24 13:13 asthma, itch Review of Systems Sugical H&P ROS: Negative: Constitution, Cardiovascular, Respiratory, Neurological, Psychiatric, Hem-Onc, Allergic/Immunologic, Gastrointestinal, Genitourinary, Musculoskeletal, Integumentary, Endocrine and Eyes/Ears/Nose/Throat Exam Surgical H&P Exam: Normal: HEENT, Normal: Heart, Normal: Lungs, Normal: Extremities, Normal: Abdomen, Normal: Skin and Normal: Neurological Plan Diagnosis/Plan: Unchanged (EGD to assess etiology of GERD. Risks of bleeding and perforation were discussed with the patient and she is in agreement with the plan.) I have reviewed the history and physical and performed a pertinent physical examination on my patient. No changes have occurred unless specified. Time Spent With Patient Time: Total time managing care of this patient today ____ minutes.
--- NOTE | 2024-08-14 08:00 | PM.OP ---
Brief Operative Note Date of Service: 08/14/24 Pre-op diagnosis: GERD Post-op diagnosis: same Procedure: PROCEDURE DATE: 08/14/2024 PREOPERATIVE DIAGNOSIS: GERD POSTOPERATIVE DIAGNOSIS: ?Same as above. 1)Normal endoscopy PROCEDURE: [id number] with biopsies Surgeon: Harshil Leonardo M.D.. Ph.D. Avionics Integration Engineer: None ? Anesthesia: IV sedation Estimated blood loss: ?Minimal FINDINGS AND PROCEDURE: ? OPERATIVE INDICATIONS: ?The patient is a 34 year old female known to me who is interested in bariatric surgery. The patient has GERD. Based on this information I recommended an upper endoscopy to evaluate the patient's symptoms. Risks and complications of the surgery were discussed with the patient in advance particularly the possibility of perforation or bleeding that may require surgical intervention. The patient understood the risks and was in agreement with the plan. ? PROCEDURE: After informed consent was obtained by the patient, the patient was ?transferred to the Operating Room and was placed in the supine position.? After successful induction of IV sedation, a mouth block was inserted and the patient was placed in the left lateral decubitus position. An upper endoscopy was performed next, the oropharynx and esophagus appeared within the normal limits. There was no hiatal hernia. The z-line was smooth. Two biopsies were obtained from the distal esophagus 2-3 cm proximal to the GE junction and two additional biopsies from the GE junction. The stomach was entered and it appeared to be of normal size. There was no gastritis. There was no stricture or ulcer. A biopsy was obtained from the gastric fundus and the antrum. No significant bleeding was noted from any of the biopsy sites. Retroflexion of the scope confirmed a normal GE junction. The scope was then advanced into the duodenum which appeared to be normal as well. At that point the duodenum ?and the stomach were decompressed and the scope was withdrawn from the patient's mouth. The patient extubated and was transferred in stable condition to the Recovery Room for further care. I was present and performed all steps of the procedure. There were no residents to assist with this case. Lalit Leonardo M.D., Ph.D. Surgeon: Torito Leonardo MD Anesthesia: MAC Was an Avionics Integration Engineer used for this Procedure?: No Estimated blood loss (mL): 0 IV fluids (mL): 400 Urine output (mL): 0 Pathology: other (1) antrum x1, 2) fundus x1, 3) GE junction x2, 4) distal esophagus x2) Condition: stable Disposition: PACU
[2024-08-14 08:03] VITALS: BP 112/73; PULSE 61; RESP 18; TEMP 36.2; O2SAT 96
[2024-08-14 08:18] VITALS: BP 108/58; PULSE 65; RESP 18; O2SAT 96
== END 2024-08-14 08:44 | disposition home or self-care (01) ==
PROVIDERS: Nurse Practitioner; PCP Internal Medicine; Visit Provider Surgery
PROC: 0DJ08ZZ Inspection of Upper Intestinal Tract, Via Natural or Artificial Opening Endoscopic (ICD-10-PCS; CPT 43235; principal; 2024-08-14 07:30)
DX: K21.9 Gastro-esophageal reflux disease without esophagitis (principal); E66.01 Morbid (severe) obesity due to excess calories; Z68.42 Body mass index [BMI] 45.0-49.9, adult; J45.909 Unspecified asthma, uncomplicated; R42 Dizziness and giddiness; Z79.899 Other long term (current) drug therapy
CPT/HCPCS: 43239; 81025; 88305; 88313; 88342; J1596; J2003; J2704

== ENCOUNTER → 2024-08-14 06:31 | Outpatient (BNV) | payer OTHER, SELFPAY | PROVIDERS: PCP Internal Medicine; Visit Provider Surgery | DX: K21.9 Gastro-esophageal reflux disease without esophagitis (principal) | CPT/HCPCS: 43239 ==

== ENCOUNTER → 2024-08-23 14:27 | Outpatient (AMB) | payer OTHER, SELFPAY ==
--- NOTE | 2024-08-23 14:10 | A.OFFWM_ITS ---
Intake Intake Visit Reasons: VIDEO BH F/U Allergies cat dander Allergy (Intermediate, Verified 06/07/24 13:13) sneezing, asthma, itch PFSH Medical History GERD (gastroesophageal reflux disease) Morbid obesity Vertigo Asthma Surgical History Hx of cholecystectomy Family History Paternal Grandmother Thyroid cancer Maternal Grandmother Breast cancer Family/Other Mental health disorder Substance use disorder Mother Asthma Mental health disorder Lupus Father No problems noted. Son Acute Lyme disease Social History Housing: Apartment Alcohol intake: current Alcohol intake frequency: holidays/special occasions only Alcohol type: beer Patient Tobacco Use Status: Never used Tobacco e-Cigarette/Vaping Use: Never Used Second Hand Smoke Exposure: No service: No Current occupational status: employed Current occupational exposures/hazards: No Sexual orientation: Straight/Heterosexual Gender identity: Female Cognitive needs: No Hearing needs: No Vision needs: Yes Female Reproductive History Menstrual Age of Menarche: 15 Behavioral Health Assessment Weight Management Therapy Therapy Notes Details PT is a years old F/M, who presents for a visit to complete BH assessment as part of surgical weight loss program. PT presents for weight-loss surgery as an effort to became healthier and happier as she doesn't feel good anymore and because she has done several things for weight-loss with poor to little success. She wants her body to match how she feels inside and how she sees herself on her head. PT been in counseling before to manage stressors, but currently denies attending any type of MH treatment. Denies ever been hospitalized or in crisis for BH, also Denies any past or recent safety concerns around SI/SA, self-harm or other- harm. PT shared some past challenges with emotional eating but, scores from BES suggest low risk for binge eating behavior. PHQ- scores also showed no active symptoms/concerns with depression. On the other hand, mental status exam is within normal limits, suggesting person's functioning is not impaired. At this time patient is cleared from the behavioral health standpoint and will be seen post-op for support. Presenting Concerns Referral Source WMP-provider. Client had initial visit with Dr Ventura on 06/05/2024 Her PCP initiallyreferred her to the program Reason for referral Completion of behavioral health assessment as part of process for weight-loss surgery. Precipitating Event Obesity. Initial weight 307Lbs. Living Situation0 Current Living Situation Rent At risk of losing current housing? No Satisfied with current living situation? Yes Comments She's in the process of buying a home. PT lives with her 12 y/o son and fiance. Food/Weight/Diet Expectations of change Initial goal to lose 10% of your weight before surgery, which is about 30lbs. Ultimate weight goal: 270lbs before surgery. PT started the program at 307Lbs, per weight check note she was 300Lbs on 06/05/2024. 07/29/2024 weight: 296Lbs. 08/23/2024 weight: 283Lbs - Meal plan: 3 shakes, 3 bars. Exercise Plan: treadmill, 1 Hr at day. History/Relationship with food PT reports that since she's at this program has learned she was an emotional-eater she was used to eat more mimi bored, but also praise/lift her mood with food. . Example of meals before starting the program Breakfast: 2HB eggs, 2 slices of turkey henao. AM snack: None. Lunch: leftovers, fast food ([employer]) PM Snack: cheese w/ cracker Dinner: @6:30pm Pork chops, rice and a vegetable. After dinner: None Drinks: Coke 1 can at day. no coffee, 36oz water bottle (fills up 2 times ay day). half glass of cranberry juice in the morning. History/Relationship with weight PT reports she was at a healthy weight in childhood. In HS she was around 160Lbs. PT believes she was under 200Lbs before having her son 12 years ago. In the last 10 years, the patient's Lowest weight was 275Lbs and highest 307Lbs History/Relationship with dieting Self-diets, limit soda intake. Would do exercise more. Binge Eating Do you frequently eat large amounts of food in short periods of time, not feeling physically hungry? Yes Do you feel out of control when you eat a large amount of food in a short period of time? No Do you eat large amounts of food rapidly and typically alone? Yes Night Eating Do you wake up at least once during the night to eat? No If you wake up in the night, do you find that it is necessary to eat something in order to fall back asleep? No Do you have little or no appetite in the morning and feel very hungry in the evening, often overeating between dinner and when you go to bed? No Social History Family history and relationship PT has been with stefanie? for about 4 years and they engaged in November. She has a 12 y/o son Has 2 siblings and 1 step-sister. Mother is alive, mom re- 2 years ago and they have a very kathryn relationship with her. Parents got when she was around 4 years old. Her dad lives in [place] and she hears from her once at year. PT reports she is very close to her siblings and step-mother and some cousins, but not that close to her mother or maternal grandmother. Parental/Familial urology physician obligations 12 y/o son. Developmental history and status None reported. currently WNL. Social support Stefanie?, son. Some co-workers. Community support PCP. Scientologist/Spirituality Rastafari. Cultural/Ethnic information . PT raised in [place], [place]. Legal Involvement and History Current or historical involvement with the legal system? None reported Education Highest grade completed HS. Finished a certificate program in dental assisting. 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 Preferred learning style Learn by doing Currently enrolled in educational program? Yes (Dental hygiene program. She ) Interested in further educational program? No Educational Interests/Skills Dental hygienist. 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 ) Wants help to find employment? No Meaningful activities Outdoor activities, getaways, family activities. Denies having hobbies on her own. Financial Situation Describe current financial situation Comfortable Financial assistance? Child Support Service Service? No Mental Health and Addiction Treatment Current/Past substance abuse? No Comments Alcohol: usually socially. 1-2 x month. 2-4 drinks. Cigarettes/Tobacco: none Cannabis/Edibles: None Current/Past addictive behavior concerns? No Psychiatric history PT is not in therapy at this time, but was in the past. Last time in [id number] to cope with a difficult break up and son's challenges. PT reports some trauma events growing up. She would like to go back to therapy to work on increased stress and process family grief due to broken relationships. Denies ever been hospitalized or in crisis for BH. Denies any past or recent safety concerns around SI/SA, self-harm or other-harm. Medical and Physical Health Summary Additional Medical History not covered in history None additional reported. Sexual History concerns None reported. Physical exam in the last year? Yes Pain Screening Current pain? No Pain in the last few months? No Medications Is the patient compliant with medications? Yes Does the patient have Caro Guardian in place? Not applicable Does the patient use complimentary health approaches? No Trauma/Abuse History History of trauma? No Questionnaires PHQ-9 Over the last 2 weeks, how often have you been bothered by any of the following problems? 1. Little interest or pleasure in doing things: not at all 2. Feeling down, depressed, or hopeless: not at all 3. Trouble falling or staying asleep, or sleeping too much: not at all 4. Feeling tired or having little energy: several days 5. Poor appetite or overeating: not at all 6. Feeling bad about yourself - or that you are a failure or have let yourself or your family down: several days 7. Trouble concentrating on things, such as reading the newspaper or watching television: not at all 8. Moving or speaking so slowly that other people could have noticed. Or the opposite - being so fidgety or restless that you have been moving around a lot more than usual: not at all 9. Thoughts that you would be better off or of hurting yourself in some way: not at all Total score: 2 Depression Screening Interpretation: Negative (Scored: 9 in the one given with new client pack. ) Depression Screening Done: Yes [id number] - PHQ-9 Billing: Yes Source: Developed by Drs. Alex Bowers, Lauren Mason, Praveen vOalle and colleagues, with an educational jeff from [employer]. Binge Eating Scale Group 1 A. I don't feel self-conscious about my wt. or body size when I'm with others. B. I feel concerned about how I look to others, but it normally does not make me fell disappointed with myself C. I do get self-conscious about my appearance and wt. which makes me feel disappointed in myself. D. I feel very self-conscious about my wt. and frequently I feel intense shame and disgust for myself. I try to avoid social contacts because of my self- consciousness. Response Group 1: C Group 2 A. I don't have any difficulty eating slowly in the proper manner. B. Although I seem to gobble down foods, I don't end up feeling stuffed because of eating to much. C. At times, I tend to eat quickly and then, I feel uncomfortably full afterwards. D. I have the habit of bolting down my food, without really chewing it. When this happens I usually feel uncomfortably stuffed because I've eaten to much. Response Group 2: C Group 3 A. I feel capable to control my eating urges when I want to. B. I feel like I have failed to control my eating more than the average person. C. I feel utterly helpless when it comes to feeling in control of my eating urges. D. Because I feel so helpless about controlling my eating I have become very desperate about trying to get control. Response Group 3: B Group 4 A. I don't have the habit of eating when I'm bored. B. I sometimes eat when I'm bored, but often I'm able to get busy and get my mind off food. C. I have a regular habit of eating when I'm bored, but occasionally, I can use some other activity to get my mind off eating. D. I have a strong habit of eating when I'm bored. Nothing seems to help me breath the habit. Response Group 4: D Group 5 A. I'm usually physically hungry when I eat something. B. Occasionally, I eat something on impulse even though I really am not hungry. C. I have the regular habit of eating foods, that I might not really enjoy, to satisfy a hungry feeling even though physically, I don't need the food. D. Although I'm not physically hungry, I get a hungry feeling in my mouth that only seems to be satisfied when I eat a food, like sandwich, that fills my mouth. Sometimes, when I eat the food to satisfy my mouth hunger, I then spit the food out so I won't gain weight. Response Group 5: B Group 6 A. I don't feel any guilt or self-hate after I overeat. B. After I overeat, occasionally I feel guilt or self-hate. C. Almost all the time I experience strong guilt or self-hate after I overeat. Response Group 6: B Group 7 A. I don't lose total control of my eating when dieting even after periods when I overeat. B. Sometimes when I eat a forbidden food on a diet, I feel like I blew it and eat even more. C. Frequently, I have the habit of saying to myself, I've blown it now, why not go all the way, when I overeat on a diet. When that happens I eat more. D. I have a regular habit of starting a strict diets for myself but I break the diets by going on an eating binge. My life seems to be either a feast or famine. Response Group 7: D Group 8 A. I rarely eat so much food that I feel uncomfortably stuffed afterwards. B. Usually about once a month, I each such a quantity of food, I end up feeling very stuffed. C. I have regular periods during the month when I eat large amounts of food, either at mealtime or at snacks. D. I eat so much food that I regularly feel quite uncomfortable after eating and sometimes a bit nauseous. Response Group 8: B Group 9 A. My level of calorie intake does not go up very high or go down very low on a regular basis. B. Sometimes after I overeat, I will try to reduce my caloric intake to almost nothing to compensate for the excess calories I've eaten. C. I have a regular habit of overeating during the night. It seems that my routine is not to be hungry in the morning but overeat in the evening. D. In my adult years, I have had week-long periods where I practically starve myself. This follows periods when I overeat. It seems I live a life of either feast or famine. Response Group 9: A Group 10 A. I usually am able to stop eating when I want to. I know when enough is enough. B. Every so often, I experience a compulsion to eat which I can't seem to control. C. Frequently, I experience strong urges to eat which I seem unable to control, but at other times I can control my eating urges. D. I feel incapable of controlling urges to eat. I have a fear of not being able to stop eating voluntarily. Response Group 10: A Group 11 A. I don't have any problem stopping eating when I feel full. B. I usually can stop eating when I feel full but occasionally overeat leaving me feeling uncomfortably stuffed. C. I have a problem stopping eating once I start and usually I feel uncomfortably stuffed after I eat a meal. D. Because I have a problem not being able to stop eating when I want, I sometimes have to induce vomiting to relieve my stuffed feeling. Response Group 11: B Group 12 A. I seem to eat just as much when I'm with others, Family social gatherings as when I'm by myself. B. Sometimes, when I'm with other persons, I don't eat as much as I want to eat because I'm self-conscious about my eating. C. Frequently, I eat only a small amount of food when others are present, because I'm very embarrassed about my eating. D. I feel so ashamed about overeating that I pick times to overeat when I know no one will see me. I feel like a closet eater. Response Group 12: B Group 13 A. I eat three meals a day with only an occasional between meal snack. B. I eat 3 meals a day, but I also normally snack between meals. C. When I am snacking heavily, I get in the habit of skipping regular meals. D. There are regular periods when I seem to be continually eating, with no planned meals. Response Group 13: A Group 14 A. I don't think much about trying to control unwanted eating urges. B. At least some of the time, I feel my thoughts are pre-occupied with trying to control my eating urges. C. I feel that frequently I spend much time thinking about how much I ate or about trying not to eat anymore. D. It seems to me that most of my waking hours are pre-occupied by thoughts about eating or not eating. I feel like I'm constantly struggling not to eat. Response Group 14: A Group 15 A. I don't think about food a great deal. B. I have strong craving for food but they last only for brief periods of time. C. I have days when I can't seem to think about anything else but food. D. Most of my days seem to be pre-occupied with thoughts about food. I feel like I live to eat. Response Group 15: B Group 16 A. I usually know whether or not I'm physically hungry. I take the right portion of food to satisfy me. B. Occasionally, I feel uncertain about knowing whether or not I'm physically hungry. A these times it's hard to know how much food I should take to satisfy me. C. Even though I might know how many calories I should eat, I don't have any idea what is a normal amount of food for me. 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 Next bob: 2-4 wks post op. Telehealth Telehealth [facility] Location of [facility] rendering services: practice address Location of patient: address on file Patient Identification confirmed using: Name, : Yes Telehealth method: video Patient verbally consented to treatment: Yes Patient verbally consented to billing insurance company: Yes Patient informed of any privacy concerns related to visit: Yes Minutes spent on Phone/Video with Pt.: 60 Coding Level of Care Code Established Pt Tele Psytx >53 mins (52142) Patient Type Established Diagnoses Trauma and stressor-related disorder F43.9 Additional Codes PHQ-9 - 94187 - PHQ-9 Billing: Yes ([id number])
== END ==
PROVIDERS: PCP Internal Medicine; Visit Provider Counselor Mental Health
DX: F43.9 Reaction to severe stress, unspecified (principal)
CPT/HCPCS: 90837

== ENCOUNTER → 2024-08-23 14:27 | Outpatient (BNVA) | payer OTHER, SELFPAY | PROVIDERS: PCP Internal Medicine; Visit Provider Counselor Mental Health ==

== ENCOUNTER 2024-09-04 08:03 | Outpatient (REF) | payer OTHER, SELFPAY ==
--- NOTE | ~2024-09-04 | FL_ITS ---
EXAMINATION: XR FLUOROSCOPY UPPER GI WITH AIR CLINICAL INFORMATION: Preoperative evaluation prior to bariatric surgery COMPARISON: None TECHNIQUE: Fluoroscopic air contrast upper GI examination was performed utilizing standard techniques with thin and thick barium and effervescent granules. Numerous spot images were obtained. FINDINGS: Dual and single contrast images of the esophagus demonstrate normal caliber, contour, and mucosal pattern. No evidence of stricture, mass, or ulcerations identified. Esophageal peristalsis was normal. Surgical clips are present in the upper quadrant. No evidence of hiatus hernia identified. No significant gastroesophageal reflux was seen during the course of the examination and on reflux views. Dual contrast and single contrast images of the stomach demonstrated normal contour and mucosal pattern without evidence of mass, ulceration, or other abnormality. Contrast freely passed into the gastric antrum and duodenal bulb without delay. Single and air-contrast images of the duodenal bulb demonstrate no abnormality. The duodenal sweep has a normal appearance, course, and mucosal fold appearance. The imaged proximal jejunum has a normal fold pattern and caliber. FLUOROSCOPY TIME: 3 minutes 1 second Number of Spot Images: 7 Number of Cine: 10 DOSE AREA PRODUCT: 2459 uGy-m2 (microgray-meter squared) FL/FL upper GI w air IMPRESSION: 1. Unremarkable upper GI series. 2. Status post cholecystectomy. This procedure was performed by Harry Duffy PA-C, and supervised by Dr. Keyes Electronically signed by: Griffin Keyes MD 09/05/2024 01:00 PM [facility]
--- NOTE | 2024-09-04 08:47 | ECG_ITS ---
Test Reason : E66.01 Blood Pressure : */* mmHG Vent. Rate : 52 BPM Atrial Rate : 52 BPM P-R Int : 144 ms QRS Dur : 74 ms QT Int : 452 ms P-R-T Axes : 19 60 20 degrees QTcB Int : 420 ms Sinus bradycardia Otherwise normal ECG No previous ECGs available Referred By: Torito Leonardo Electronically Signed By: HEATHER HENDRICKS
== END 2024-09-04 08:04 | disposition home or self-care (01) ==
LOC: HO.XRAY 08:03
PROVIDERS: PCP Internal Medicine; Visit Provider Surgery
DX: Z01.818 Encounter for other preprocedural examination (principal); E66.01 Morbid (severe) obesity due to excess calories; K21.9 Gastro-esophageal reflux disease without esophagitis
CPT/HCPCS: 74246; 93005

== ENCOUNTER → 2024-09-04 08:04 | Outpatient (BNV) | payer OTHER, SELFPAY | PROVIDERS: PCP Internal Medicine; Visit Provider Physician Assistant Surgical | DX: K21.9 Gastro-esophageal reflux disease without esophagitis (principal); E66.01 Morbid (severe) obesity due to excess calories; Z01.818 Encounter for other preprocedural examination | CPT/HCPCS: 74246 ==

== ENCOUNTER → 2024-09-04 08:47 | Outpatient (BNV) | payer OTHER, SELFPAY | PROVIDERS: PCP Internal Medicine; Visit Provider Internal Medicine | DX: R00.1 Bradycardia, unspecified (principal) | CPT/HCPCS: 93010 ==

== ENCOUNTER 2024-09-23 07:55 | Outpatient (AMB) | payer OTHER, SELFPAY ==
--- OUTSIDE RECORDS SUMMARY | 2024-09-23 08:03 | XMS_ITS | Encounter Summary ---
Author Organization [facility] Address [address] [place] [address] Care Team Providers Care Clean Out Driller Helper Name Role Phone Bessie Mclain MD Primary Care Provider Unava ilable Encounter Details Date Type Department Care Team Description 12/13/2010 Release of Information Medical Records [address] [place] [id number] Abstract, Provider Social History Tobacco Use Types Packs/Day Years Used Date Smoking Tobacco: Never Alcohol Use Standard Drinks/Week Comments No 0 (1 standard drink = 0.6 oz pur e alcohol) Sex Assigned at Date Recorded Not on file documented as of this encounter Plan of Treatment Not on file documented as of this encounter Visit Diagnoses Not on filedocumented in this encounter Care Teams Clean Out Driller Helper Relationship Specialty Start Date End Date Bessie Mclain MD PCP - General 12/10/10 documented as of this encounter
--- OUTSIDE RECORDS SUMMARY | 2024-09-23 08:03 | XMS_ITS | Encounter Summary ---
Author Organization [facility] Address [address] [place] [address] Care Team Providers Care Sports Activities Foul Judge Name Role Phone Bessie Mclain MD Primary Care Provider Unava ilable Encounter Details Date Type Department Care Team Description 07/19/2019 Release of Information Medical Records [address] [place] [address] Abstract, Provider Social History Tobacco Use Types Packs/Day Years Used Date Smoking Tobacco: Never Smokeless Tobacco: Never Alcohol Use Standard Drinks/Week Comments No 0 (1 standard drink = 0.6 oz pur e alcohol) Sex Assigned at Date Recorded Not on file documented as of this encounter Plan of Treatment Not on file documented as of this encounter Visit Diagnoses Not on filedocumented in this encounter Care Teams Sports Activities Foul Judge Relationship Specialty Start Date End Date Bessie Mclain MD PCP - General 12/10/10 documented as of this encounter
--- NOTE | 2024-09-23 10:43 | MHC.OFFVISWM ---
VS Expanded 09/23/24 10:55 Height 5 ft 7 in Weight 276 lb 2 oz BMI 43.2 Body Fat % 53.1 Body Fat Mass 146.6 Fat Free Mass 129.4 Visceral Fat Rating 17.9 Body Water % 37.3 Body Water Mass 103 Basal Metabolic Rate/Score 1,986 Intake Visit Reasons: TV Pre Op LSG 10/09/2024 Allergies cat dander Allergy (Intermediate, Verified 09/23/24 10:43) sneezing, asthma, itch Medication List - Last Reconciled 09/23/24 by Torito Leonardo MD albuterol sulfate 90 mcg/actuation (ProAir HFA) 2 puffs inhalation Q6H PRN cholecalciferol (vitamin D3) 125 mcg PO DAILY mecobalamin (vitamin B12) 1,000 mcg sublingual DAILY ondansetron 4 mg PO Q12H pantoprazole 40 mg PO DAILY phentermine 37.5 mg PO DAILY polyethylene glycol 3350 17 grams PO DAILY sucralfate 10 mL PO BID vitamin A palmitate 10,000 units PO DAILY HPI HPI TV Pre Op LSG 10/09/2024: Details: Start time: 10.34am, End time: 11.04am ?I spent 25 minutes speaking with the patient on the phone plus an additional 5 minutes reviewing and updating records for a total of 30 minutes HPI Comments Details: Overall weight loss: 24.4lbs, or 8.12% TBWL Is doing 3 Celebrate Rebuild protein shakes (1-2 scoops in water) and 3 Celebrate protein bars Exercise: is doing treadmill for 300 calories per day, daily PFSH Medical History GERD (gastroesophageal reflux disease) Morbid obesity Vertigo Asthma Surgical History Hx of cholecystectomy Family History Paternal Grandmother Thyroid cancer Maternal Grandmother Breast cancer Family/Other Mental health disorder Substance use disorder Mother Asthma Mental health disorder Lupus Father No problems noted. Son Acute Lyme disease Social History Housing: Apartment Alcohol intake: current Alcohol intake frequency: holidays/special occasions only Alcohol type: beer Patient Tobacco Use Status: Never used Tobacco e-Cigarette/Vaping Use: Never Used Second Hand Smoke Exposure: No service: No Current occupational status: employed Current occupational exposures/hazards: No Sexual orientation: Straight/Heterosexual Gender identity: Female Cognitive needs: No Hearing needs: No Vision needs: Yes Female Reproductive History Menstrual Age of Menarche: 15 Telehealth Telehealth Telehealth Platform: Telephone Location of provider rendering services: practice address Location of patient: address on file Patient Identification confirmed using: Name, : Yes Telehealth method: voice only Patient verbally consented to treatment: Yes Patient verbally consented to billing insurance company: Yes Patient informed of any privacy concerns related to visit: Yes Minutes spent on Phone/Video with Pt.: 30 Assessment & Plan Assessment & Plan (1) Morbid obesity: Code(s): E66.01 - Morbid (severe) obesity due to excess calories Category: Medical Plan: 1. Plan for lap sleeve gastrectomy including upper GI endoscopy. All tests has been completed and reviewed and the patient is cleared for the surgery. ?If diaphragmatic or ventral hernias are present at time of surgery, these will be repaired laparoscopically as well. Risks and complications were discussed in detail including possible conversion to an open procedure, anastomotic leak, bleeding requiring transfusion, small bowel obstruction, , DVT and pulmonary embolism, cardiac, or pulmonary complications, as group home complications such as anastomotic ulcer, insufficient weight loss and vitamin deficiencies. I emphasized the importance of close follow-up, adherence to instructions and good communication. So far she has proven to be an excellent communicator and very compliant with all our directions accomplishing a great weight loss. I believe that she is an excellent candidate and she is ready. 2. Preop prescriptions were provided and explained the purpose of each one. Need to be purchased preop. Start Pantoprazole now as you get it from the pharmacy, 1 pill per day. Sucralfate and Zofran are for after surgery as needed. 3. Bowel prep: please do 7 packets ?of Miralax mixing each one with a an 8oz glass of water, crystal light, gatorade zero, or propel ?on 10/07/24 and the same amount on 10/08/24. The Miralax you begin with one packet at a time in 8oz water or crystal light, gatorade zero, or propel ?as early in the day as you can and you do them back to back until you finish them. Continue the protein shakes during ?the bowel prep. 4. Needs to purchase 1oz medicine cups . 5. Needs to purchase Children's liquid Tylenol for postop pain control. 6. She needs to stop the Phentermine on 10/07/24 (last pill that day). Avoid aspirin, motrin, Advil, Aleve, Meloxicam, Excedrin, Ibuprofen, Naproxyn. Tylenol is OK. 7. She needs to purchase the Celebrate 4:1 protein shakes or the Celebrate multivitamins from the hospital's gift shop. 8. Will do basic preop blood work-up any day between Monday09/30/24 and Monday10/04/24 fasting for 12 hours and is scheduled to see the Anesthesiologist prior to the day of surgery. 9. Importance of adherence to postop folllow-up and recommendations was underscored and she understands that. 10. Stop food and bars as of Monday09/30/24 and create an aggressive meal plan with the [employer] bob and send me a screenshot of the plan you will create 11. No soups, broths or V8 12. The patient's?medical?history has been reviewed and they are considered low risk for post op DVT and therefore DVT prophylaxis is not considered necessary. Travel after surgery was reviewed. The patient has not disclosed any travel plans during the first 30 days after surgery and they have been advised that within the first 30 days after surgery any bus, plane, train or car travel over 2 hours in duration is contraindicated due to the possibility of developing blood clots from immobility. Any travel, needs to include periods of ambulation of 10 minutes in duration every 2 hours.? Patient was instructed to discuss any plans for travel during this period with their bariatric surgeon.? 13. Please take at the day of surgery the following medications: NONE 14. Stop any control pills and don't use them for one month after surgery 15. Absolutely no smoking or vaping, or marijuana until the surgery and for at least the first 4 weeks. Only nicotine patches are allowed. 16. Send me weight measurements on Monday09/25/24, 10/02/24 and then on 2/12/25 the day of surgery before you go to the hospital. 17. Avoid any steroids by mouth for any reason. Let me know if someone prescribes them to you 18. These instructions supersede anything else you read in the handbook, anything you watched in videos or classes or you were told by any other provider. If there is any conflict, you follow the above instructions and nothing else. Orders: Orders Comprehensive Met. Panel Today Z01.818 - Encounter for other preprocedural examination Prothrombin Time INR Today Z.818 - Encounter for other preprocedural examination Partial Thromboplastin Time Today Z.818 - Encounter for other preprocedural examination Insulin Today Z.818 - Encounter for other preprocedural examination TSH reflex Free T4 Today Z.818 - Encounter for other preprocedural examination Hemoglobin A1c Today Z.818 - Encounter for other preprocedural examination Lipid Panel Today Z.818 - Encounter for other preprocedural examination Type and Screen Today Z.818 - Encounter for other preprocedural examination C Reactive Protein Today Z.818 - Encounter for other preprocedural examination Complete Blood Count Auto Diff Today Z.818 - Encounter for other preprocedural examination Medications: New ondansetron Only take one every 12 hours as needed if you have nausea 4 mg PO Q12H 20 tabs 0RF nausea and vomiting R11.0 - Nausea pantoprazole 40 mg PO DAILY 90 tabs 0RF K21.9 - Gastro-esophageal reflux disease without esophagitis sucralfate 10 mL PO BID 600 mL 2RF K21.9 - Gastro-esophageal reflux disease without esophagitis polyethylene glycol 3350 Mix each measuring cup with 8oz of water, Crystal light, or Gatorade zero, or Propel and do 7 measuring cups on 10/17/24 and another 7 measuring cups on 10/08/24 17 grams PO DAILY 238 grams 0RF Z01.818 - Encounter for other preprocedural examination
[2024-09-23 10:55] VITALS: BMI 43.2
== END 2024-09-23 11:06 | disposition home or self-care (01) ==
LOC: HO.HBS 07:55
PROVIDERS: PCP Internal Medicine; Visit Provider Surgery
DX: E66.01 Morbid (severe) obesity due to excess calories (principal)
CPT/HCPCS: 99214

== ENCOUNTER 2024-10-09 06:13 | Inpatient (IN) | payer OTHER, SELFPAY ==
[2024-09-26 10:06] VITALS: BMI 43.1
[2024-10-05 09:14] LABS: MANUAL DIFF FLAG NO
[2024-10-05 09:41] LABS: Basophils Percent Auto 0.5 % (0-2); Eosinophils Absolute Auto 0.1 X10*3/uL (0.0-0.4); Hematocrit 41.6 % (37.0-47.0); Hemoglobin 14.2 g/dl (12.0-16.0); Lymphocytes Absolute Auto 1.2 X10*3/uL (1.2-4.9); Lymphocytes Percent Auto 30.4 % (20-40); Mean Corpuscular HGB Conc 34.1 g/dl (31.0-35.0); Mean Corpuscular Hemoglobin 28.3 pg (27.0-33.0); Mean Platelet Volume 10.2 fL (9.4-12.3); Monocytes Absolute Auto 0.4 X10*3/uL (0.1-1.2); Monocytes Percent Auto 10.1 % (2-11); Neutrophils Absolute Auto 2.3 x10*3/uL (2.0-8.3); Platelet Count 269 X10*3/uL (160-400); Red Blood Count 5.01 X10*6/uL (4.20-5.50); Red Cell Distribution Width 13.2 % (11.0-16.0)
[2024-10-05 09:48] LABS: INTERNATIONAL NORM RATIO 1.1 (0.9-1.1); Prothrombin Time 13.3 SEC (10.9-12.4)
[2024-10-05 09:51] LABS: Partial Thromboplastin Time 35.3 SEC (26.0-36.8)
[2024-10-05 09:59] LABS: Estimated Average Glucose 100 mg/dL; Hemoglobin A1C 118.2766 umol/L; Hemoglobin A1c % 5.1 % (<6.0); Total Hemoglobin (HGBA1C) 3678.6686 umol/L
[2024-10-05 10:24] LABS: Alanine Aminotransferase 65 U/L (0-31); Albumin Level 4.7 g/dL (3.5-5.0); Alkaline Phosphatase 70 U/L (39-117); Anion Gap 14 (12-20); Aspartate Amino Transferase 28 U/L (5-31); Bilirubin Total 1.8 mg/dL (0.0-1.0); Blood Urea Nitrogen 11 mg/dL (9-16); C Reactive Protein 0.74 mg/dL (< or = 0.50); Carbon Dioxide 24 mmol/L (22-29); Chloride 106 mmol/L (96-108); Cholesterol 131 mg/dL (<200); Creatinine Clr Calc Pharmacy 187.7; Estimated Glomerular Filt Rate > 60; Glucose Random 85 mg/dL (60-115); HDL Cholesterol 29 mg/dL (>40); LDL Cholesterol Calculated 91 mg/dL (<100); Sodium 140 mmol/L (135-145); Total Protein 8.7 g/dL (6.5-8.0); Triglycerides 59 mg/dL (<150)
[2024-10-05 10:50] LABS: TSH reflex Free T4 0.84 uIU/mL (0.32-4.0)
[2024-10-05 11:49] LABS: Insulin 8 uU/mL (2-29)
--- NOTE | 2024-10-08 09:25 | HO.ANESPROP2 ---
Documented by User: Lucretia Reed NP 10/08/24 09:26 HPI - Anesthesia Eval Consult details Narrative: 34yo F for Gastrectomy Sleeve _ EGD, possible diaphragmatic hernia, possible ventral hernia, possible open PMFSH Active Problems Active Problems: All Active Problems Vitamin A deficiency (Acute) Vitamin B12 deficiency (Acute) Vitamin D deficiency (Acute) Physical exam (Acute) control counseling (Acute) Sinusitis, acute (Acute) Headache (Acute) Counseling for control, oral contraceptives (Acute) Obesity, morbid, BMI 40.0-49.9 (Acute) Cervical cancer screening (Acute) Well woman exam with routine gynecological exam (Acute) Potential exposure to STD (Acute) GERD (gastroesophageal reflux disease) (Acute) Morbid obesity (Acute) Asthma (Acute) Vertigo (Acute) Past Medical History Medical History GERD (gastroesophageal reflux disease) Morbid obesity Vertigo Asthma Family History Family History Paternal Grandmother Thyroid cancer Maternal Grandmother Breast cancer Family/Other Mental health disorder Substance use disorder Mother Asthma Mental health disorder Lupus Father No problems noted. Son Acute Lyme disease Family history of problems with anesthesia: No Surgical History Surgical History History of esophagogastroduodenoscopy (EGD) Hx of cholecystectomy History of Problems with Anesthesia: No Social History Social History Housing: Apartment Are you a primary insurance healthcare representative to a significant other at home: No Do you presently have visiting nurse or other home services: No Alcohol intake: current Alcohol intake frequency: holidays/special occasions only Alcohol type: beer Patient Tobacco Use Status: Never used Tobacco e-Cigarette/Vaping Use: Never Used Second Hand Smoke Exposure: No Use of substances other than those prescribed or required for medical reasons: No Have you been hit, kicked, punched, or otherwise hurt by someone within the past year? If so, by whom?: No Spiritual Healthcare Practices: none Latter-Day Healthcare Practices: none Cultural Healthcare Practices: none Are you DNR?: No Advance Directives: No (states spouse is primary contact) Advance Directives Information Provided: Yes (as above noted) Advance Directives on File: No Recently lost weight without trying: No Eating poorly because of decreased appetite: No Nutrition Risks: No Nutritional Risk Patient : No FDLMP: 09/06/24 : No Poor oral hygiene: No service: No Current occupational status: employed Current occupational exposures/hazards: No Sexual orientation: Straight/Heterosexual Gender identity: Female Cognitive needs: No Hearing needs: No Vision needs: Yes Meds Allergies Allergy/AdvReac Type Severity Reaction Status Date / Time cat dander Allergy Intermediate sneezing, Verified 09/27/24 14:14 asthma, itch Home Medications ?Medication ?Instructions ?Recorded ?Confirmed ?Last Taken ?Type albuterol sulfate 90 mcg/actuation 2 puff inhalation Q6H PRN 09/26/24 10/09/24 Unknown History aerosol inhaler (Ventolin HFA) Shortness Of Breath Or Wheezing Exam Height,Weight and Vital Signs: Height 5 ft 7 in Weight 124.738 kg Pertinent Lab Results Pertinent Lab Results: Laboratory Tests 10/05/24 10/05/24 08:58 09:07 WBC 4.0 L RBC 5.01 Hgb 14.2 Hct 41.6 MCV 83.0 MCH 28.3 MCHC 34.1 RDW 13.2 Plt Count 269 MPV 10.2 Immature Gran % (Auto) 0.0 Neut % (Auto) 57.0 Lymph % (Auto) 30.4 [place] % (Auto) 10.1 Eos % (Auto) 2.0 Baso % (Auto) 0.5 Lymph # (Auto) 1.2 [place] # (Auto) 0.4 Eos # (Auto) 0.1 Baso # (Auto) 0.0 Abs Immat Gran (auto) 0.00 Absolute Neuts (auto) 2.3 Absolute Nucleated RBC 0.000 Nucleated RBC % (auto) 0.0 PT 13.3 H INR 1.1 APTT 35.3 Sodium 140 Potassium 4.0 Chloride 106 Carbon Dioxide 24 Anion Gap 14 BUN 11 Creatinine 0.59 Estim Creat Clear Calc 187.7 Estimated GFR > 60 Random Glucose 85 Estimat Average Glucose 100 Hemoglobin A1c % 5.1 Insulin Level 8 Calcium 10.0 Total Bilirubin 1.8 H AST 28 ALT 65 H Alkaline Phosphatase 70 C-Reactive Protein 0.74 H Total Protein 8.7 H Albumin 4.7 Triglycerides 59 Cholesterol 131 LDL Cholesterol, Calc 91 HDL Cholesterol 29 L TSH 0.84 Blood Type O Negative Antibody Screen NEGATIVE Narrative Narrative: EKG 08/2024 Vent. Rate : 52 BPM Atrial Rate : 52 BPM P-R Int : 144 ms QRS Dur : 74 ms QT Int : 452 ms P-R-T Axes : 19 60 20 degrees QTcB Int : 420 ms Sinus bradycardia Otherwise normal ECG No previous ECGs available Assessment and Plan Assessment Anesthesia Assessment: Chart Reviewed Final Anesthetic Review Family History of Problems with Anesthesia: No History of Problems with Anesthesia: No Documented by User: Jacqueline Garcia MD 10/09/24 08:05 [facility] Past Medical History Medical History GERD (gastroesophageal reflux disease) Morbid obesity Vertigo Asthma Family History Family History Paternal Grandmother Thyroid cancer Maternal Grandmother Breast cancer Family/Other Mental health disorder Substance use disorder Mother Asthma Mental health disorder Lupus Father No problems noted. Son Acute Lyme disease Surgical History Surgical History History of esophagogastroduodenoscopy (EGD) Hx of cholecystectomy Social History Social History Housing: Apartment Are you a primary insurance healthcare representative to a significant other at home: No Do you presently have visiting nurse or other home services: No Alcohol intake: current Alcohol intake frequency: holidays/special occasions only Alcohol type: beer Patient Tobacco Use Status: Never used Tobacco e-Cigarette/Vaping Use: Never Used Second Hand Smoke Exposure: No Use of substances other than those prescribed or required for medical reasons: No Have you been hit, kicked, punched, or otherwise hurt by someone within the past year? If so, by whom?: No Spiritual Healthcare Practices: none Latter-Day Healthcare Practices: none Cultural Healthcare Practices: none Are you DNR?: No Advance Directives: No (states spouse is primary contact) Advance Directives Information Provided: Yes (as above noted) Advance Directives on File: No Recently lost weight without trying: No Eating poorly because of decreased appetite: No Nutrition Risks: No Nutritional Risk Patient : No FDLMP: 09/06/24 : No Poor oral hygiene: No service: No Current occupational status: employed Current occupational exposures/hazards: No Sexual orientation: Straight/Heterosexual Gender identity: Female Cognitive needs: No Hearing needs: No Vision needs: Yes Meds Allergies Allergy/AdvReac Type Severity Reaction Status Date / Time cat dander Allergy Intermediate sneezing, Verified 09/27/24 14:14 asthma, itch Home Medications ?Medication ?Instructions ?Recorded ?Confirmed ?Last Taken ?Type albuterol sulfate 90 mcg/actuation 2 puff inhalation Q6H PRN 09/26/24 10/09/24 Unknown History aerosol inhaler (Ventolin HFA) Shortness Of Breath Or Wheezing Exam Airway Mallampati Class: II TM Dist: >3cm Neck ROM: Full Loose/Missing/Broken Teeth: No Heart: RRR Lungs: CTA Assessment and Plan Assessment Anesthesia Assessment: Anesthesia Plan Discussed Final Anesthetic Review NPO: Yes ASA Class: III Final Preanesthetic Review: Meds/Allgs Chart Reviewed, Consent Obtained/Reviewed and Anes Risks/Benef Reviewed Patient Risk: Intermediate Procedure Risk: Intermediate Anesthetic Plan Anesthetic Plan: GA Disposition: Standard PACU
[2024-10-08 11:50] VITALS: BP 139/82; PULSE 62; RESP 14; O2SAT 97
[2024-10-09] VITALS (21 sets, daily range): BP systolic 107–153; BP diastolic 58–92; PULSE 48–75; RESP 10–20; TEMP 36.1–37; O2SAT 94–100; BMI 40.9
--- OUTSIDE RECORDS SUMMARY | 2024-10-09 06:19 | XMS_ITS | Encounter Summary ---
Author Organization [facility] Address [address] [place] [address] Care Team Providers Care Window/Distribution Clerk Name Role Phone Bessie Mclain MD Primary Care Provider Unava ilable Encounter Details Date Type Department Care Team Description 12/13/2010 Release of Information Medical Records [address] [place] [id number] Abstract, Provider Social History Tobacco Use Types [...] on filedocumented in this encounter Care Teams Window/Distribution Clerk Relationship Specialty Start Date End Date Bessie Mclain MD PCP - General 12/10/10 documented as of this encounter
--- OUTSIDE RECORDS SUMMARY | 2024-10-09 06:19 | XMS_ITS | Encounter Summary ---
Author Organization [facility] Address [address] [place] [address] Care Team Providers Care Jet Handler Name Role Phone Bessie Mclani MD Primary Care Provider Unava ilable Encounter Details Date Type Department Care Team Description 07/19/2019 Release of Information Medical Records [address] [place] [address] Abstract, Provider Social History Tobacco Use Types [...] on filedocumented in this encounter Care Teams Jet Handler Relationship Specialty Start Date End Date Bessie Mclain MD PCP - General 12/10/10 documented as of this encounter
[2024-10-09 06:38] LABS: UPreg QC Valid YES; Urine Pregnancy NEGATIVE (NEGATIVE)
[2024-10-09] MEDS: Lactated Ringers 1,000 ML 999 ML IV (06:52)
[2024-10-09] MEDS: Aprepitant 32 MG/4.4 ML VIAL IVPUSH (06:52)
--- NOTE | 2024-10-09 06:55 | PHA.MEDREC ---
Pharmacy Consult ? Medication Reconciliation Pharmacy has reviewed the medication reconciliation completed by nursing.
--- NOTE | 2024-10-09 07:27 | MHC.SHP ---
Pre-Procedural Eval Section A - 24 Hr Update-Section A only Date of Service: 10/09/24 The patient is an INPATIENT: Yes The patient has been examined within 24 hours of the surgical procedure. The History & Physical has been completed within 30 days and I have reviewed it.: Yes Section B - Complete if H&P > 30 days Chief Complaint: Morbid (severe) obesity due to excess calories Relevant Family History (Specify if Yes): No Relevant Social History: None Present Medications: None Medical History: No relevant PMH History of Previous Operations: No relevant previous surgery Allergies: Allergies Allergy/AdvReac Type Severity Reaction Status Date / Time cat dander Allergy Intermediate sneezing, Verified 09/27/24 14:14 asthma, itch Review of Systems Sugical H&P ROS: Negative: Constitution, Cardiovascular, Respiratory, Neurological, Psychiatric, Hem-Onc, Allergic/Immunologic, Gastrointestinal, Genitourinary, Musculoskeletal, Integumentary, Endocrine and Eyes/Ears/Nose/Throat Exam Surgical H&P Exam: Normal: HEENT, Normal: Heart, Normal: Lungs, Normal: Extremities, Normal: Abdomen, Normal: Skin and Normal: Neurological Plan Diagnosis/Plan: Unchanged I have reviewed the history and physical and performed a pertinent physical examination on my patient. No changes have occurred unless specified. Time Spent With Patient Time: Total time managing care of this patient today ____ minutes.
--- NOTE | 2024-10-09 07:32 | P.BOP_ITS ---
Brief Operative Note Date of Service: 10/09/24 Pre-op diagnosis: Morbid obesity with comorbidities (see below) Post-op diagnosis: same Procedure: INITIAL PATIENT BMI ON PRESENTATION AT OUR OFFICE: 45.7 kg/m2 LAST BMI BEFORE SURGERY: 42.6 kg/m2 COMORBIDITIES: GERD, Asthma, liver fibrosis ?The patient presented to the Weight Management Program with significant obesity that was negatively impacting the patient's comorbidities as listed above.? The program is a phased program with a special focus on preoperative medical weight management to promote substantial weight loss and prepare the patients for the second phase of the program: bariatric surgery. The patient participated in an intensive weekly lifestyle ?intervention and exercise program during which the patient ?has lost between the initial office visit and the last preoperative visit 29lbs, or 9.65% of initial actual body weight. It was deemed appropriate for the patient to now have bariatric surgery. In light of the current Covid-19 pandemic and the well documented strong association of obesity and increased risk of worse outcomes if infected with Covid-19 (REFERENCES: https://pubmed.ncbi.nlm.nih.gov/16211833/ ,? https://pubmed.ncbi.[facility].nih.gov/35166673/ ), any delay in undergoing bariatric surgery may lead to the patient's worsening health condition and increased?risk of more severe Covid-19 disease if infected. In addition a recent?study from [facility] published in [facility] on 08/23/2021 ([email or web address]/[email or web address].pdf) found that, among patients with obesity, substantial weight loss achieved with surgery was associated with improved outcomes of COVID-19 infection. The findings suggest that obesity can be a modifiable risk factor for the severity of COVID-19 infection. In addition, the patient met the BMI-criteria for bariatric surgery based on the BMI on initial presentation. The patient should not be penalized for achieving such weight loss because ?it is not sustainable long-term without surgical intervention and it was achieved in preparation for bariatric surgery ?under my direction and based on my published research (file:/// C:/[email or web address]).pdf and? https://www.soard.org/article/U7136-4007(36)96921-X/pdf ) ?that a 10% preoperative weight loss improves long-term weight loss after surgery and reduces perioperative complications.? Insurance carriers such as [facility] have endorsed my recommendations ?and have included in their policies criteria to include a 10% preoperative weight loss requirement. PROCEDURE: Esophago-gastroscopy, laparoscopic sleeve gastrectomy and laparoscopic gastropexy INDICATIONS: This is a 34 year-old female who was electively scheduled for lapa roscopic, possibly open sleeve gastrectomy. The risks and complications of the procedure were discussed with the patient in advance, particularly the possibility of ; pulmonary embolism; staple line leak; bleeding; GERD; cardiac, pulmonary, or renal complications; as well as long-term problems such as insufficient weight loss, vitamin deficiency, strictures, or ulcers. The patient understood all the risks, and was in agreement to proceed with surgery. DESCRIPTION OF PROCEDURE: After informed consent was obtained from the patient, the patient was given preoperative antibiotics, and was transferred to the operating room. After successful induction of general anesthesia, pneumatic compression devices were placed on both lower extremities. An upper endoscopy was performed next. The oropharynx and esophagus appeared to be within normal limits. There was no diaphragmatic hernia present consistent with the findings of the preoperative upper GI. The stomach was entered. Then after all fluid and air were suctioned and the stomach was fully decompressed, the scope was withdrawn and secured in the mid esophagus. The patient was then prepped and draped in the usual sterile manner, and abdominal access was established at the right upper quadrant with the Carissa technique. A 12 mm blunt port was inserted, and the abdomen was insufflated with CO2 to a pressure of 15 mmHg. Under direct visualization, additional ports were placed, specifically two 5 mm Versi-step ports to the left upper quadrant, and a 5 mm Versi-Step port to the right upper quadrant. 1% lidocaine plain was used to infiltrate all port sites as well as all fascia defects. Following that, the patient was placed in a steep reverse Trendelenburg position. An additional 5 mm port was placed to the right flank for the Mediflex retractor that was used to retract the left lobe of the liver. The gastro-esophageal fat pad was opened with the ultrasonic device (Thelidaerbeat, Olympus) and the anterior esophagus and hiatus were exposed. The angle of His was opened with the ultrasonic device the fundus of the stomach from any diaphragmatic and splenic attachments. I then opened the gastrocolic ligament between the transverse colon and the greater curvature of the stomach with the ultrasonic device to enter the lesser sac and facilitate the ligation of the short gastric vessels. I started at a mid-point along the greater curvature and using the Thunderbeat, all short gastric vessels were divided all the way to the angle of His until the left deanna was completely dissected at its entirety. I then divided the gastro-colic ligament distally to a distance of about 3-4 cm proximal to the pylorus.? The stomach was then divided transversely with two Endo EDMUNDO-45 purple and three EDMUNDO-60 articulating purple loads using the Ummitech stapler and loads. Every effort was made that the gastric sleeve had a tubular shape and an even caliber throughout. Once the sleeve resection was completed, the staple line of the gastric sleeve was reinforced with Hemoclips. The resected stomach was retrieved without difficulty from the Carissa port. A gastropexy was then performed in order to prevent postoperative GERD and partial gastric volvulus. Several interrupted 2.0 Surgidac sutures were placed between the sleeve's staple line and the previously divided greater omentum and gastro-colic ligament using the Endo-Stitch device. ?An upper endoscopy was performed. There was no narrowing at the GE junction. The scope was easily advanced all the way to the pylorus which was clearly visualized. There was no narrowing anywhere and the sleeve's caliber was even throughout. The sleeve's staple line was inspected and there was no evidence of ischemia, bleeding or dehiscence. At that point the gastroscope was withdrawn from the patient?s mouth while we were decompressing the bowel and the stomach from any remaining air. I looked into the lesser sac to see how the sleeve was situating and it was situating well. There was no bleeding from the staple line, spleen, or short gastric vessels. The Mediflex retractor was removed, and the undersurface of the liver was inspected and there was no bleeding. The patient was placed in supine position. I closed the fascial defect of the 12 mm port site with a figure of eight #1 Polysorb suture. Then 30cc Ropivacaine plain with 10 mg of Dexamethasone were used to infiltrate the fascial closure as well as all skin incisions. At this point, the abdomen was deflated, all ports were removed under direct vision, and no bleeding was noted from any of the port sites. The skin incisions were irrigated with saline and were closed with 4-0 absorbable monofilament sutures. Steri-Strips and OpSites were used to cover all incisions. The patient was extubated and was transferred in stable condition to the recovery room for further care. I was present and performed all guthrie parts of the procedure. Mr Saalzar was the certified surgical first assistant. There were no residents to assist with this case. Lalit Leonardo MD, PhD, FACS Surgeon: Torito Leonardo MD Anesthesia: GETA, local and other (TAP block) Was an Material Mixer used for this Procedure?: No Material Mixer: Merlin Salazar Estimated blood loss (mL): 10 IV fluids (mL): 2,000 Urine output (mL): 0 (No Sanabria to record output) Pathology: other (1) Stomach, 2) gastro-esophageal fat pad) Condition: stable Disposition: PACU
--- NOTE | 2024-10-09 07:37 | P.PNGS_ITS ---
Subjective Subjective Date of Service: 10/10/24 Interval history: Feels well. Mild incisional pain. She is tolerating phase 1 bariatric diet Physical Exam 2 Vital Signs: Vital Signs: Last Vital Signs Temp 98.4 F 10/09/24 06:37 Pulse 75 10/09/24 06:37 Resp 16 10/09/24 06:37 BP 122/71 10/09/24 06:37 Pulse Ox 98 10/09/24 06:37 O2 Del Method Room Air 10/09/24 06:37 BMI result Body Mass Index 40.9 GI: Inspection: Yes normal to inspection, Yes incision (clean, dry and intact) and Yes obesity Palpation (GI): Soft to palpation Extrem: Right lower extremity: normal to inspection (no calf tenderness) L eft lower extremity: normal to inspection (no calf tenderness) Objective Data Active Medications Albuterol Sulfate (Albuterol Sulfate (0.083%) 2.5 Mg/3 Ml Vial.Neb) 2.5 mg INHALE ONCE PRN PRN Reason: Shortness of Breath/Wheezing Lactated Ringer's (Lr) 1,000 mls @ 100 mls/hr IVCONT .Q10H GRETA Lactated Ringer's (Lr) 1,000 mls @ 999 mls/hr IV .Q1H1M GRETA Stop: 10/09/24 08:15 Last Admin: 10/09/24 06:52 Dose: 999 mls/hr Documented By: REBECA Labs 10/10/24 05:37 10/10/24 05:37 Labs: Laboratory Results - last 24 hr 10/09/24 06:16 Urine Test NEGATIVE Procedures Date of Service Date of Service: 10/10/24 Progress Note: A&P Assessment and plan (1) Morbid obesity: Status: Acute Assessment and Plan: s/p laparoscopic sleeve gastrectomy and gastropexy Doing well Will check am labs and if OK the patient will be discharged home (2) GERD (gastroesophageal reflux disease): Status: Acute (3) Asthma: Status: Acute (4) Liver fibrosis: Status: Acute (5) S/P laparoscopic sleeve gastrectomy: Status: Acute Time Spent With Patient Time: Total time managing care of this patient today ____ minutes. Quality Stroke Does the patient have a stroke diagnosis?: No VTE Prior VTE?: No VTE Risk Level:: Surgical - moderate VTE Device Contraindication: N/A - Device Ordered VTE Drug Contraindication: Treatment Not Indicated
[2024-10-09] MEDS: ceFAZolin Sodium/Dextrose,Iso 2 GM/50 ML PIGGYBACK IV ×2 (07:50→13:17)
--- NOTE | 2024-10-09 09:41 | PM.DS ---
DS: Providers Provider Date of Service: 10/10/24 Date of admission: 10/09/24 06:13 Date of discharge: 10/10/24 Primary care physician: Kiya Monroy MD DS: Diagnosis Discharge Diagnosis (1) Morbid obesity: Status: Acute (2) GERD (gastroesophageal reflux disease): Status: Acute (3) Asthma: Status: Acute (4) Liver fibrosis: Status: Acute DS: Summary Hospital Course Hospital Course: ADMITTING DIAGNOSIS: morbid obesity, asthma ? DISCHARGE DIAGNOSIS: same, s/p laparoscopic sleeve gastrectomy ? PAST SURGICAL HISTORY: laparoscopic cholecystectomy ? PROCEDURE: upper endoscopy, laparoscopic sleeve gastrectomy ? DISCHARGE SUMMARY: ? History of Present Illness: ? The patient is a?34 year-old woman with a BMI of?45.7 kg/m2 and associated co-morbidities as described above. The patient had extensive work-up,lost?26.3 lbs preoperatively and was electively scheduled for laparoscopic, possible open sleeve gastrectomy and gastropexy. Risks and complications of the surgery were discussed with the patient in advance, particularly the possibility of , pulmonary embolism, anastomotic leak, bleeding, bowel injury, GERD, cardiac, renal or pulmonary complications. The patient understood all the risks and was in agreement with the surgical plan. ? Hospital Course: ? The patient underwent an uneventful laparoscopic sleeve gastrectomy with gastropexy on the day of admission. Postoperatively, the patient was transferred to the surgical floor. The patient received IV Acetaminophen and IV dilaudid for pain control. Patient was started on bariatric phase 1 diet POD #0. On postoperative day one, the patient was feeling well without nausea, vomiting, fevers, or tachycardia. The patient had some mild incisional pain and the abdomen was soft. ? On the morning of postoperative day one, the patient was continued on 1 ounce of water or ice every half hour. During the day, the patient did fairly well, having some incisional pain, but able to ambulate adequately and to tolerate liquids well. ? Since the patient is doing well, we decided that the patient was ready to be discharged. The patient was given instructions to follow-up with me next week and to call my office for any fever over 101, persistent abdominal pain, nausea, vomiting, GERD, symptoms of DVT such as calf tenderness, or leg swelling, or pulmonary embolism such as chest pain or shortness of breath. The patient was also instructed to drink 40-60 ounces of liquids per day using the 1-ounce cups. The patient had been given prescriptions for Tylenol for pain, Zofran prn for nausea, and pantoprazole and carafate previously. The patient was encouraged to ambulate and use the incentive spirometer. The patient was allowed to shower, but no baths, and encouraged to stay active at home. All of these instructions were given to the patient personally. All questions were answered and the patient understood all instructions, the instructions were also given to the patient in print. Time Attestation Total time managing care of this patient today: 25 mintues. Discharge Coordination Time (in mins): 25 Quality: Safe Use of Opioids Does Pt have an Active Cancer Diagnosis on the Problem List?: No Quality: Stroke Does the patient have a stroke diagnosis?: No Physical Exam Vital Signs: Vital Signs: Last Vital Signs Temp 98.4 F 10/09/24 06:37 Pulse 75 10/09/24 06:37 Resp 16 10/09/24 06:37 BP 122/71 10/09/24 06:37 Pulse Ox 98 10/09/24 06:37 O2 Del Method Room Air 10/09/24 06:37 BMI result Body Mass Index 40.9 DS: Data Data Completed and Pending Pending studies at discharge: Pending at discharge 10/09/24 08:54 Surgical [PTH] Routine Labs on day of discharge: Laboratory Results - last 24 hr 10/09/24 06:16 Urine Test NEGATIVE Discharge Plan Discharge Anticipated Discharge Date/Time: 10/10/24 10:00 Patient Disposition: Home, Self-Care Discharge Diagnosis: s/p laparoscopic sleeve gastrectomy Referrals: Kiya Olivares MD [Primary Care Provider] - 1 Week Discharge Medications: Continued albuterol sulfate [Ventolin HFA] 90 mcg/actuation Hfa Aerosol Inhaler 2 puff INHALATION Q6H PRN (Reason: Shortness Of Breath Or Wheezing) pantoprazole 40 mg tablet,delayed release (DR/EC) 40 mg PO DAILY Qty: 90 0RF sucralfate 100 mg/mL suspension 10 ml PO BID Qty: 600 2RF ondansetron 4 mg tablet,disintegrating 4 mg PO Q12H Qty: 20 0RF Rx Instructions: Only take one every 12 hours as needed if you have nausea Discontinued cholecalciferol (vitamin D3) 125 mcg (5,000 unit) capsule 125 mcg PO DAILY Qty: 90 0RF mecobalamin (vitamin B12) 1,000 mcg tablet,disintegrating 1,000 mcg sublingual DAILY Qty: 90 0RF Rx Instructions: place tablet under tongue and allow to dissolve for at least30 secs before swallowing Discharge Orders: Discharge Order (Routine); Ordered 10/10/24 Ordered By: Torito Leonardo Activity on Discharge: No heavy lifting Stand Alone Forms: Patient Portal Discharge page Print Language: Setswana Care Plan Goals: weight loss Health Concerns: morbid obesity Plan of Treatment: No tub baths, sex or returning to work until discussed at first post op appointment. No exercise, alcohol, tobacco or illegal drug use. Continue to use incentive spirometer hourly while awake. Walk in home for 5- 10 minutes every 2 hours during the first week. Follow all instructions in the bariatric handbook and call with any questions.Discharge Instructions 1. Please call your doctor or come back to the emergency room should any new symptoms arise. 2. You will receive a courtesy call from [facility] 24-48 hours after discharge. 3. Activity: abstain from alcohol, practice limited stair climbing, no bending, no driving, no exercise, no illicit substances, no lifting, no sex, no tub bath, no work. 4. Diet: continue as discussed with Dr. Leonardo. 5. Dressing Change/Wound Care: Your incision is covered by clear bandages and guaze underneath. If the area is tender, you may apply an ice pack for short intervals (no more than 20 minutes on, followed by at least 20 minutes off). Do not apply heat. Do not use creams, lotions, or topical antibiotics unless instructed to do so by your surgeon. These can cause infection or allergic reaction. 6. Call your doctor if: - Your temperature exceeds 101.5 F - You experience excessive pain or swelling - You have an unexpected reaction to medication - You have excessive bleeding - You experience continued vomiting/nausea - Your incision begins to separate - Your incision shows signs of infection such as increased redness, swelling, excessive pain, heat, or drainage (light blood or clear fluid is normal) 7. General instructions: No lifting greater than 5 lbs for 1 week and not more than 20lbs the next 3?weeks. No driving until seen at the office in 5-7 days after surgery. If you do not move your bowels in the next 2 days, please tell?Dr. Leonardo. Please walk around your home every hour or two to prevent blood clots from forming in your legs. You do not need to wake from sleeping to walk. Please sleep in a bed or couch to prevent kinking at the hips and knees. Please take your incentive spirometer (your lung direct mail manager) home with you and use it for the next few days to prevent pneumonia. You may shower, no hot tubs, baths or swimming pools.?Please follow the post op diet instructions you are?given by Dr Leonardo? and text me daily at 5-6pm for an update.?If you have any issues or concerns or questions please communicate this to him via text.? The Celebrate shakes have all of the bariatric vitamins you need if you consume these shakes. If you are drinking other protein shakes, you will need to purchase the Celebrate multivitamins and calcium that are available in the hospital gift shop on the first floor of the [facility].??Do not take anything without first discussing with Dr Leonardo. Please make sure you are consuming at least 40 ounces of fluids per day starting the?day AFTER your discharge from the hospital. Always drink 1-2 ml per minute using the 5ml?syringe. If you drink faster you may experience?bloating,?gas pain, burping, nausea or heartburn. In that case please slow down your pace and use the syringe to?understand better the?proper?pace and volume of drinking. Do not hesitate to contact the office with any questions at . The patient's medical history has been reviewed and they are considered low risk for post op DVT and therefore DVT prophylaxis is not considered necessary. Travel after surgery was reviewed. The patient has not disclosed any travel plans during the first 30 days after surgery and they have been advised that within the first 30 days after surgery any bus, plane, train or car travel over 2 hours in duration is contraindicated due to the possibility of developing blood clots from immobility. Any travel, needs to include periods of ambulation of 10 minutes in duration every 2 hours.? The patient was instructed to discuss any plans for travel during this period with their bariatric surgeon. Assessment: stable s/p laparoscopic sleeve gastrectomy
[2024-10-09] MEDS: Haloperidol Lactate 5 MG/ML VIAL 1 MG IVPUSH (09:50)
[2024-10-09] MEDS: fentaNYL citrate/PF 100 MCG/2 ML VIAL 25 MCG IVPUSH (09:50)
[2024-10-09 10:07] LABS: Hematocrit 37.5 % (37.0-47.0); Hemoglobin 12.7 g/dl (12.0-16.0)
[2024-10-09 10:19] LABS: Anion Gap 15 (12-20); Blood Urea Nitrogen 10 mg/dL (9-16); Carbon Dioxide 22 mmol/L (22-29); Chloride 106 mmol/L (96-108); Creatinine Clr Calc Pharmacy 162.9; Estimated Glomerular Filt Rate > 60; Glucose Random 116 mg/dL (60-115); Potassium 4.2 mmol/L (3.3-5.1); Sodium 139 mmol/L (135-145)
[2024-10-09] MEDS: Lactated Ringers 1,000 ML 100 ML IVCONT ×2 (12:45→22:33)
[2024-10-09] MEDS: Acetaminophen 1,000 MG/100 ML PIGGYBACK 16.7 MG IV ×2 (14:02→20:12)
[2024-10-09] MEDS: ondansetron HCL 4 MG/2 ML VIAL IVPUSH (14:08)
[2024-10-09] MEDS: Metoclopramide HCl 10 MG/2 ML VIAL IVPUSH (15:09)
[2024-10-09] MEDS: HYDROmorphone HCl 0.5 MG/0.5 ML SYRINGE 0.25 MG IVPUSH ×2 (15:09→20:19)
[2024-10-09] MEDS: 0.9 % Sodium Chloride Flush 3 ML SYRINGE IVFLUSH (15:09)
[2024-10-10] MEDS: Acetaminophen 1,000 MG/100 ML PIGGYBACK 16.7 MG IV (02:18)
[2024-10-10 03:12] VITALS: BP 117/62; PULSE 51; RESP 18; TEMP 36.7; O2SAT 95
[2024-10-10 06:18] LABS: MANUAL DIFF FLAG NO
[2024-10-10] MEDS: Pantoprazole Sodium 40 MG/10 ML VIAL IVPUSH (06:23)
[2024-10-10 06:26] LABS: Basophils Percent Auto 0.2 % (0-2); Imm Gran Abs Auto 0.01 X10*3/uL (0.00-0.03); Imm Gran Pct Auto 0.2 % (0.0-0.4); Lymphocytes Absolute Auto 0.7 X10*3/uL (1.2-4.9); Lymphocytes Percent Auto 10.7 % (20-40); Mean Corpuscular HGB Conc 33.3 g/dl (31.0-35.0); Mean Corpuscular Hemoglobin 28.1 pg (27.0-33.0); Mean Corpuscular Volume 84.3 fL (80.0-98.0); Mean Platelet Volume 10.8 fL (9.4-12.3); Monocytes Absolute Auto 0.4 X10*3/uL (0.1-1.2); Monocytes Percent Auto 6.1 % (2-11); Neutrophils Absolute Auto 5.3 x10*3/uL (2.0-8.3); Neutrophils Percent Auto 82.8 % (45-73); Platelet Count 256 X10*3/uL (160-400); Red Blood Count 4.27 X10*6/uL (4.20-5.50); Red Cell Distribution Width 13.3 % (11.0-16.0); White Blood Count 6.4 X10*3/uL (4.8-10.8)
[2024-10-10 06:41] LABS: Anion Gap 15 (12-20); Blood Urea Nitrogen 7 mg/dL (9-16); Calcium 9.3 mg/dL (8.4-10.2); Carbon Dioxide 19 mmol/L (22-29); Chloride 107 mmol/L (96-108); Creatinine Clr Calc Pharmacy 179.3; Estimated Glomerular Filt Rate > 60; Glucose Random 105 mg/dL (60-115); Potassium 4.2 mmol/L (3.3-5.1); Sodium 137 mmol/L (135-145)
[2024-10-10 07:55] VITALS: BP 129/80; PULSE 55; RESP 16; TEMP 36.2; O2SAT 96
[2024-10-10 08:02] VITALS: O2SAT 95
--- NOTE | 2024-10-10 09:40 | MHC.CM.PN ---
Patient dc'd home self care via private transport prior to CM assessment.
--- NOTE | 2024-10-10 10:27 | HO.POSTANES ---
Post Anesthesia Evaluation Post Anesthesia Evaluation Date of Service: 10/10/24 Vital Signs: Vital Signs Temp Pulse Resp BP Pulse Ox O2 Del Method 10/10/24 08:02 95 10/10/24 07:55 97.1 F 55 16 129/80 96 Room Air 10/10/24 03:12 98.1 F 51 18 117/62 95 Room Air 10/09/24 23:22 97.3 F 52 20 107/58 L 94 Room Air Anesthesia: General Endotracheal-GETA Mental Status: Awake Pain Control: Satisfactory Nausea/Vomiting: None Hydration: Adequate Anesthesia-Related Issues: No Anes. Related Issues
== END 2024-10-10 09:32 | disposition home or self-care (01) | DRG 403 ==
LOC: HO.SSSA 09:44 → HO.S3 11:19
PROVIDERS: Nurse Practitioner; Physician Assistant Surgical; Admitting Provider Surgery; PCP Internal Medicine; Visit Provider Surgery
PROC: 0DB64Z3 Excision of Stomach, Percutaneous Endoscopic Approach, Vertical (ICD-10-PCS; CPT 43845; principal; 2024-10-09 07:30)
DX: E66.01 Morbid (severe) obesity due to excess calories (principal); K74.00 Hepatic fibrosis, unspecified; J45.909 Unspecified asthma, uncomplicated; K21.9 Gastro-esophageal reflux disease without esophagitis; Z68.41 Body mass index [BMI] 40.0-44.9, adult; Z79.899 Other long term (current) drug therapy
CPT/HCPCS: 36415; 80048; 80053; 80061; 81025; 83036; 83525; 84443; 85014; 85018; 85025; 85610; 85730; 86140; 86850; 86900; 86901; 88304; 88307; 88342; A4649; C9145; J0131; J0690; J1100; J1171; J1630; J2003; J2250; J2405; J2470; J2704; J2765; J2795; J3010; J7120

== ENCOUNTER → 2024-10-09 06:13 | Outpatient (BNV) | payer OTHER, SELFPAY | PROVIDERS: Admitting Provider Surgery; PCP Internal Medicine; Visit Provider Surgery | DX: E66.813 Obesity, class 3 (principal); Z68.41 Body mass index [BMI] 40.0-44.9, adult | CPT/HCPCS: 43659; 43775 ==

== ENCOUNTER 2024-10-16 13:49 | Outpatient (AMB) | payer OTHER, SELFPAY ==
--- NOTE | 2024-10-16 13:58 | MHC.OFFVISWM ---
VS Expanded 10/16/24 14:17 BP 126/59 L Blood Pressure Location Rt brachial Blood Pressure Position Sitting Pulse 79 Pulse Source Pulse Oximeter Temp 98.1 F Temperature Source Temporal Artery Scan Pulse Oximetry 99 Oxygen Delivery Method Room Air Height 5 ft 8 in Weight 253 lb 12.8 oz BMI 38.6 Body Fat % 48.0 Body Fat Mass 122.0 Fat Free Mass 131.8 Visceral Fat Rating 12.0 Body Water % 37.3 Body Water Mass 94.6 Muscle Mass/Score 125.2 Basal Metabolic Rate/Score 1,901 Intake Visit Reasons: (OV) PO LSG 10/09/2024 Seed Core Operator Required: No Allergies cat dander Allergy (Intermediate, Verified 10/16/24 14:25) sneezing, asthma, itch Medication List - Last Reconciled 10/16/24 by MATT Bean albuterol sulfate 90 mcg/actuation (Ventolin HFA) 2 puffs inhalation Q6H PRN pantoprazole 40 mg PO DAILY sucralfate 10 mL PO BID HPI Comments Details: Patient is a pleasant 34-year-old female who returns to the office today in follow-up. She is 7 days post sleeve gastrectomy performed on 10/09/2024. Tolerating 3 celebrate rebuild shakes with 1 scoop each and proximally 60 oz of fluids. She has moved her bowels. Denies any pain. [facility] Medical History GERD (gastroesophageal reflux disease) Morbid obesity Vertigo Asthma Surgical History (Updated 10/16/24 @ 14:26 by Viktoria Jennings CMA) S/P laparoscopic sleeve gastrectomy History of esophagogastroduodenoscopy (EGD) Hx of cholecystectomy Family History Paternal Grandmother Thyroid cancer Maternal Grandmother Breast cancer Family/Other Mental health disorder Substance use disorder Mother Asthma Mental health disorder Lupus Father No problems noted. Son Acute Lyme disease Social History Household Members: Spouse and Family Housing: Apartment Are you a primary health care legal assistant to a significant other at home: No Do you presently have visiting nurse or other home services: No Alcohol intake: current Alcohol intake frequency: holidays/special occasions only Alcohol type: beer Patient Tobacco Use Status: Never used Tobacco e-Cigarette/Vaping Use: Never Used Second Hand Smoke Exposure: No service: No Current occupational status: employed Current occupational exposures/hazards: No Sexual orientation: Straight/Heterosexual Gender identity: Female Cognitive needs: No Hearing needs: No Vision needs: Yes Female Reproductive History Menstrual Age of Menarche: 15 Physical Exam GI Inspection: Yes incision (Clean, dry, intact.) Assessment & Plan Assessment & Plan (1) S/P laparoscopic sleeve gastrectomy: Code(s): Z98.84 - Bariatric surgery status Category: Surgical Plan: POD 7 s/p LSG on 10/09/[address] Leonardo Weight loss prior to surgery was 26.3 pounds or 8.7 % TBWL. Original weight on 06/05/2024 was 300.6 pounds and op weight was 274.3 pounds. Be sure to text Dr Leonardo exactly 1 week after surgery your weight from your home scale so he can adjust your meal plan. Continue meal plan until f/u nathaniel Boyer in 2 weeks May shower, no submersion in bath for another week Continue abdominal binder with activity and exercise for the next 2 weeks. Exercise prior to surgery was treadmill and may resume No abdominal exercises for 6 weeks post operatively Will be emailed link to post op video for review Reminded of the pace of drinking, 2 mL per minute, 1 oz/15 min.
[2024-10-16 14:17] VITALS: BP 126/59; PULSE 79; TEMP 36.7; O2SAT 99; BMI 38.6
== END 2024-10-16 14:34 | disposition home or self-care (01) ==
PROVIDERS: PCP Internal Medicine; Visit Provider Physician Assistant Surgical
DX: Z98.84 Bariatric surgery status (principal)
CPT/HCPCS: 99024

== ENCOUNTER → 2024-10-16 13:49 | Outpatient (BNVA) | payer OTHER, SELFPAY | PROVIDERS: PCP Internal Medicine; Visit Provider Physician Assistant Surgical | DX: E66.01 Morbid (severe) obesity due to excess calories (principal); Z98.84 Bariatric surgery status; Z68.38 Body mass index [BMI] 38.0-38.9, adult | CPT/HCPCS: 99212 ==

== ENCOUNTER 2024-11-06 10:08 | Outpatient (AMB) | payer OTHER, SELFPAY ==
--- NOTE | 2024-11-06 10:01 | A.OFFWM_ITS ---
Intake Intake Visit Reasons: VIDEO PO LSG 10/09/24 Allergies cat dander Allergy (Intermediate, Verified 10/16/24 14:25) sneezing, asthma, itch PFSH Medical History (Updated 10/18/24 @ 00:00 by Background Daemon) Physical exam control counseling Sinusitis, acute Headache Counseling for control, oral contraceptives Cervical cancer screening Well woman exam with routine gynecological exam Potential exposure to STD GERD (gastroesophageal reflux disease) Morbid obesity Vertigo Asthma Surgical History (Updated 10/18/24 @ 00:00 by Background Daemon) S/P laparoscopic sleeve gastrectomy History of esophagogastroduodenoscopy (EGD) Hx of cholecystectomy Family History Paternal Grandmother Thyroid cancer Maternal Grandmother Breast cancer Family/Other Mental health disorder Substance use disorder Mother Asthma Mental health disorder Lupus Father No problems noted. Son Acute Lyme disease Social History Household Members: Spouse and Family Housing: Apartment Are you a primary behavioral health care manager to a significant other at home: No Do you presently have visiting nurse or other home services: No Alcohol intake: current Alcohol intake frequency: holidays/special occasions only Alcohol type: beer Patient Tobacco Use Status: Never used Tobacco e-Cigarette/Vaping Use: Never Used Second Hand Smoke Exposure: No service: No Current occupational status: employed Current occupational exposures/hazards: No Sexual orientation: Straight/Heterosexual Gender identity: Female Cognitive needs: No Hearing needs: No Vision needs: Yes Female Reproductive History Menstrual Age of Menarche: 15 Behavioral Health Assessment Weight Management Therapy Therapy Notes Details Subjective: The patient reports experiencing a kathryn recovery overall, though her initial post-operative recovery was smooth, with no complications. She acknowledges that she has been overthinking and that since returning to work early, she has occasionally struggled to maintain proper hydration. Objective: The patient presents for a follow-up visit after undergoing bariatric surgery on 10/09/2024. We reviewed her current routine, identified challenges, and discussed her specific needs. Non-scale victories were also acknowledged and celebrated. Psychoeducation was provided regarding stress management and the patient's patterns of anxiety. We explored potential strategies to help her manage anxiety and regain a sense of control. Specific scenarios where the patient exhibited anxiety responses were reviewed, and alternative coping strategies were discussed. A cognitive-behavioral therapy (CBT) approach was utilized during the session. The PHQ-9 was administered, and the patient's score indicates no active symptoms or concerns related to depression. Assessment/Response: * Mental Status: Mild anxiety, but the patient is functioning well overall. * Risk: No risk factors identified. The patient was open, engaged, and active during the session. Food/Weight/Diet Expectations of change Initial goal to lose 10% of your weight before surgery, which is about 30lbs. Ultimate weight goal: 270lbs before surgery. PT started the program at 307Lbs, per weight check note she was 300Lbs on 06/05/2024. 07/29/2024 weight: 296Lbs. 08/23/2024 weight: 283Lbs Weight on surgery day: 274Lbs PO weight 10/16/2024: 253Lbs PO weight 11/06/2024: 248Lbs PT's target weight: 160Lbs. - Meal plan: 2 shakes, 1 bar. (Feeling gassy with bars. Tried eggs and didn;t do well) Exercise Plan: Treadmill daily for at least 300calories and daily walks. Questionnaires PHQ-9 Over the last 2 weeks, how often have you been bothered by any of the following problems? 1. Little interest or pleasure in doing things: not at all 2. Feeling down, depressed, or hopeless: not at all 3. Trouble falling or staying asleep, or sleeping too much: not at all 4. Feeling tired or having little energy: not at all 5. Poor appetite or overeating: not at all 6. Feeling bad about yourself - or that you are a failure or have let yourself or your family down: not at all 7. Trouble concentrating on things, such as reading the newspaper or watching television: not at all 8. Moving or speaking so slowly that other people could have noticed. Or the opposite - being so fidgety or restless that you have been moving around a lot more than usual: not at all 9. Thoughts that you would be better off or of hurting yourself in some way: not at all Total score: 0 Depression Screening Interpretation: Negative Depression Screening Done: Yes 40938 - PHQ-9 Billing: Yes Source: Developed by Drs. Alex Bowers, Lauren Mason, Praveen Ovalle and colleagues, with an educational jeff from [employer]. Assessment & Plan Assessment & Plan (1) Trauma and stressor-related disorder: Code(s): F43.9 - Reaction to severe stress, unspecified Plan The patient will return for a follow-up visit in 2-3 weeks for continued post- operative support. Next bob: 11/27/24 at 1pm, Telehealth. Telehealth Telehealth Telehealth Platform: [employer] Location of provider rendering services: practice address Location of patient: address on file Patient Identification confirmed using: Name, : Yes Telehealth method: video Patient verbally consented to treatment: Yes Patient verbally consented to billing insurance company: Yes Patient informed of any privacy concerns related to visit: Yes Minutes spent on Phone/Video with Pt.: 45 Coding Level of Care Code Established Pt Tele Psytx 45 mins (29411) Patient Type Established Diagnoses Trauma and stressor-related disorder F43.9 Additional Codes PHQ-9 - 93453 - PHQ-9 Billing: Yes ([id number]) Time Spent (min) 45
== END 2024-11-06 10:41 | disposition home or self-care (01) ==
PROVIDERS: PCP Internal Medicine; Visit Provider Counselor Mental Health
DX: F43.9 Reaction to severe stress, unspecified (principal)
CPT/HCPCS: 90834

== ENCOUNTER → 2024-11-06 10:08 | Outpatient (BNVA) | payer OTHER, SELFPAY | PROVIDERS: PCP Internal Medicine; Visit Provider Counselor Mental Health | DX: Z48.815 Encounter for surgical aftercare following surgery on the digestive system (principal); Z98.84 Bariatric surgery status | CPT/HCPCS: 99212 ==

== ENCOUNTER 2024-11-06 14:16 | Outpatient (AMB) | payer OTHER, SELFPAY ==
--- NOTE | 2024-11-06 14:26 | MHC.OFFVISWM ---
VS Expanded 11/06/24 14:35 BP 116/69 Blood Pressure Location Rt brachial Blood Pressure Position Sitting Pulse 61 Pulse Source Pulse Oximeter Temp 97.7 F Temperature Source Temporal Artery Scan Pulse Oximetry 99 Oxygen Delivery Method Room Air Height 5 ft 8 in Weight 245 lb BMI 37.2 Body Fat % 44.4 Body Fat Mass 108.6 Fat Free Mass 136.2 Visceral Fat Rating 10.0 Body Water % 39.9 Body Water Mass 97.6 Muscle Mass/Score 129.4 Basal Metabolic Rate/Score 1,935 Intake Visit Reasons: (OV) PO LSG 10/09/2024 Allergies cat dander Allergy (Intermediate, Verified 11/06/24 14:42) sneezing, asthma, itch HPI Comments Details: This?a?34?yo female who is s/p LSG without hiatal hernia repair on?10/09/2024. Presents for 1 month post op visit. Weight today is 245 pounds, with a BMI of 37.3. There has been a 55.6 pound weight loss,(initial weight 300.6 pounds) since starting the program on 06/05/2024 reflecting a 18.4 % total body weight loss and a weight loss of 29.3 pounds since surgery (operative weight 274.3 pounds) reflecting a 10.6 % TBWL since surgery. No complaints of nausea, emesis, abdominal pain or reflux. Reports infrequent but normal bowel movements every 3 days and uses stool softeners regularly. taking MVI States she is switching between celebrate 4 in 1 and rebuild Present meal plan includes: 730-11 celebrate rebuild 2 scoops in 8 oz water celebrate bar 12-2 another shake 3-5 meal at 6 with 3 forks eggs or cottage cheese or yogurt 1/2 bar at 8-9 drinking 42 oz water ? Exercise routine includes: treadmill daily 300 leodan PFSH Medical History (Updated 10/18/24 @ 00:00 by Jarocho Cisneros) Physical exam control counseling Sinusitis, acute Headache Counseling for control, oral contraceptives Cervical cancer screening Well woman exam with routine gynecological exam Potential exposure to STD GERD (gastroesophageal reflux disease) Morbid obesity Vertigo Asthma Surgical History S/P laparoscopic sleeve gastrectomy History of esophagogastroduodenoscopy (EGD) Hx of cholecystectomy Family History Paternal Grandmother Thyroid cancer Maternal Grandmother Breast cancer Family/Other Mental health disorder Substance use disorder Mother Asthma Mental health disorder Lupus Father No problems noted. Son Acute Lyme disease Social History Household Members: Spouse and Family Housing: Apartment Are you a primary client care consultant to a significant other at home: No Do you presently have visiting nurse or other home services: No Alcohol intake: current Alcohol intake frequency: holidays/special occasions only Alcohol type: beer Patient Tobacco Use Status: Never used Tobacco e-Cigarette/Vaping Use: Never Used Second Hand Smoke Exposure: No service: No Current occupational status: employed Current occupational exposures/hazards: No Sexual orientation: Straight/Heterosexual Gender identity: Female Cognitive needs: No Hearing needs: No Vision needs: Yes Female Reproductive History Menstrual Age of Menarche: 15 Physical Exam Const General: healthy appearing and no acute distress Resp Effort & Inspection: normal respiratory effort Auscultation: clear to auscultation bilaterally Cardio Rate: regular rate Rhythm: regular rhythm GI Auscultation: normal bowel sounds Extrem General: Yes normal to inspection Assessment & Plan Assessment & Plan (1) S/P laparoscopic sleeve gastrectomy: Code(s): Z98.84 - Bariatric surgery status Category: Surgical Plan: 730-11 celebrate rebuild 2 scoops in 8 oz water celebrate bar 12-2 another shake with celebrate 4 in 1 2 scoops in 8 oz water 3-5 meal at 6 with 3 forks eggs or cottage cheese or yogurt 1/2 bar at 8-9 She will do 1 shake of celebrate 4 in 1 and 1 shake of celebrate rebuild as she likes to switch Flavors. Continue with exercises she is doing. Continue to text weights weekly and with any questions or concerns.
[2024-11-06 14:35] VITALS: BP 116/69; PULSE 61; TEMP 36.5; O2SAT 99; BMI 37.2
--- OUTSIDE RECORDS SUMMARY | 2024-11-06 16:49 | XMS_ITS | Encounter Summary ---
Author Organization [facility] Address [address] [place] [address] Care Team Providers Care Charge Entry Specialist Name Role Phone Bessie Mclain MD Primary Care Provider Unava ilable Encounter Details Date Type Department Care Team Description 07/19/2019 Release of Information Medical Records [address] [place] [address] Abstract, Provider Social History Tobacco Use Types [...] on filedocumented in this encounter Care Teams Charge Entry Specialist Relationship Specialty Start Date End Date Bessie Mclain MD PCP - General 12/10/10 documented as of this encounter
--- OUTSIDE RECORDS SUMMARY | 2024-11-06 16:49 | XMS_ITS | Encounter Summary ---
Author Organization [facility] Address [address] [place] [address] Care Team Providers Care Radial Drill Operator Name Role Phone Bessie Mclain MD Primary Care Provider Unava ilable Encounter Details Date Type Department Care Team Description 09/04/2015 Wool Buyer Report Medical Records [address] [place] [address] Sadiq Segundo MD Social History Tobacco Use Types Packs/Day Years [...] on filedocumented in this encounter Care Teams Radial Drill Operator Relationship Specialty Start Date End Date Bessie Mclain MD PCP - General 12/10/10 documented as of this encounter
== END 2024-11-06 15:00 | disposition home or self-care (01) ==
LOC: HO.HBS 14:17
PROVIDERS: PCP Internal Medicine; Visit Provider Physician Assistant Surgical
DX: Z98.84 Bariatric surgery status (principal)
CPT/HCPCS: 99024

== ENCOUNTER → 2024-11-27 13:13 | Outpatient (AMB) | payer OTHER, SELFPAY ==
--- NOTE | 2024-11-27 13:05 | A.OFFWM_ITS ---
Intake Intake Visit Reasons: VIDEO PO LSG 10/09/24 Allergies cat dander Allergy (Intermediate, Verified 11/06/24 14:42) sneezing, asthma, itch PFSH Medical History (Updated 10/18/24 @ 00:00 by Jarocho Cisneros) Physical exam control counseling Sinusitis, acute Headache Counseling for control, oral contraceptives Cervical cancer screening Well woman exam with routine gynecological exam Potential exposure to STD GERD (gastroesophageal reflux disease) Morbid obesity Vertigo Asthma Surgical History S/P laparoscopic sleeve gastrectomy History of esophagogastroduodenoscopy (EGD) Hx of cholecystectomy Family History Paternal Grandmother Thyroid cancer Maternal Grandmother Breast cancer Family/Other Mental health disorder Substance use disorder Mother Asthma Mental health disorder Lupus Father No problems noted. Son Acute Lyme disease Social History Household Members: Spouse and Family Housing: Apartment Are you a primary memory care program resident to a significant other at home: No Do you presently have visiting nurse or other home services: No Alcohol intake: current Alcohol intake frequency: holidays/special occasions only Alcohol type: beer Patient Tobacco Use Status: Never used Tobacco e-Cigarette/Vaping Use: Never Used Second Hand Smoke Exposure: No service: No Current occupational status: employed Current occupational exposures/hazards: No Sexual orientation: Straight/Heterosexual Gender identity: Female Cognitive needs: No Hearing needs: No Vision needs: Yes Female Reproductive History Menstrual Age of Menarche: 15 Behavioral Health Assessment Weight Management Therapy Therapy Notes Details Subjective: The patient reports feeling better overall. She has been losing weight at a steady pace according to her last check-in with NAYAN. Her meal plan now includes Telugu yogurt, which she feels is beneficial. She has also been very active, engaging in both indoor and outdoor exercises. The patient feels she has successfully adjusted to life post-op. Objective: The patient attended a post-op follow-up behavioral health visit via Telehealth. * Discussed her overall functioning, daily routine, needs, challenges, and progress since surgery. * CBT/CPT approaches were used to help support her with adjustment, decision- making, and habit-building. * Reflected on her goals and motivations, emphasizing how her behaviors need to align with these aspirations. * Reinforced the importance of sticking to the plan and maintaining weekly communication with providers. * Provided upcoming dates for peer-support group meetings. * Validated and normalized her feelings, while reinforcing her commitment to the post-op plan. Assessment/Response: * Mental Status: Stable, within normal limits (WNL). The patient is adapting well to her post-op life and remains committed to her health journey. * Risk: No risks reported or identified at this time. Food/Weight/Diet Expectations of change Initial goal to lose 10% of your weight before surgery, which is about 30lbs. Ultimate weight goal: 270lbs before surgery. PT started the program at 307Lbs, per weight check note she was 300Lbs on 06/05/2024. 07/29/2024 weight: 296Lbs. 08/23/2024 weight: 283Lbs Weight on surgery day: 274Lbs PO weight 10/16/2024: 253Lbs PO weight 11/06/2024: @home: 248Lbs [facility] -245 lb PO weight 11/27/24: 240 Lbs PT's target weight: 160 lbs. - Meal plan: 1 shakes, 2 bars, Telugu yogurt Exercise Plan: Treadmill daily for at least 300 calories and daily walks. Assessment & Plan Assessment & Plan (1) Trauma and stressor-related disorder: Code(s): F43.9 - Reaction to severe stress, unspecified Plan Follow up in 1 month for post-op support Next bob: 12/27/2024 at 2pm, Telehealth Telehealth Telehealth Telehealth Platform: [facility] Location of provider rendering services: other Location of patient: address on file Patient Identification confirmed using: Name, : Yes Telehealth method: voice only Patient verbally consented to treatment: Yes Patient verbally consented to billing insurance company: Yes Patient informed of any privacy concerns related to visit: Yes Minutes spent on Phone/Video with Pt.: 50 Coding Level of Care Code Established Pt Tele Psytx 45 mins (37173) Patient Type Established Diagnoses Trauma and stressor-related disorder F43.9 Time Spent (min) 50
--- OUTSIDE RECORDS SUMMARY | 2024-11-27 15:48 | XMS_ITS | Encounter Summary ---
Author Organization [facility] Address [address] [place] [address] Care Team Providers Care Mechanism Inspector Name Role Phone Bessie Mclain MD Primary Care Provider Unava ilable Encounter Details Date Type Department Care Team Description 09/04/2015 Edi Developer Report Medical Records [address] [place] [address] Sadiq Segundo MD Social History Tobacco Use [...] on filedocumented in this encounter Care Teams Mechanism Inspector Relationship Specialty Start Date End Date Bessie Mclain MD PCP - General 12/10/10 documented as of this encounter
--- OUTSIDE RECORDS SUMMARY | 2024-11-27 15:48 | XMS_ITS | Clinical Summary ---
Author Organization [facility] Address [address] [place] [address] Care Team Providers Care Technical Writer And Editor Name Role Phone Bessie Mclain MD Primary Care Provider Unava ilable Allergies No known active allergies Medications Medication Sig Dispensed Refills Start Date End Date Status loratadine (CLARITIN) 10 MG tablet Take 1 Tab by mouth daily. 30 Tab 5 07/08/2015 Active ALBUTEROL SULFATE (PROAIR HFA) 108 (90 BASE) MCG/ACT Aero Soln Inhale 2 Puffs into the lungs every 4 hours as needed for Cough or Wheezing. 1 Inhaler 0 09/29/2016 Active Meclizine HCl 25 MG TabIndications:Pharyng itis, unspecified etiology,Vertigo Take 1 Tab by mouth 3 times daily as needed (for dizziness) for up to 10 days. 30 Tab 1 11/20/2017 Active ibuprofen (ADVIL,MOTRIN) 600 MG tablet Take 1 Tab by mouth every 6 hours as needed for Pain for up to 30 days. 120 Tab 0 10/23/2018 Active JUNEL .01/24 1.5-30 MG-MCG Tab Take 1 Tab by mouth daily. 0 10/08/2019 Active Active Problems Problem Noted Date Headache 08/17/2012 Asthma Resolved Problems Problem Noted Date Resolved Date Routine general medical exam ination at a health care facility 08/17/2012 12/31/2012 Immunizations Name Administration Dates Next Due Hepatitis B > 19yrs 02/19/2014,01/22/2014 Influenza (> 6 Months) 08/17/2012,05/30/2011 PPD-RBMG 02/19/2014 Tdap 01/09/2014 Family History Medical History Relation Name Comments CA Prostate Maternal Grandfather Diabetes Maternal Grandfather Hypertension Maternal Grandfather Hypertension Maternal Grandmother lupus Mother CA Breast Negative Hx CA Colon Negative Hx Relation Name Status Comments Father Alive Maternal Grandfather Maternal Grandmother Mother Alive Social History Tobacco Use Types Packs/Day Years Used Date Smoking Tobacco: Never Smokeless Tobacco: Never Alcohol Use Standard Drinks/Week Comments No 0 (1 standard drink = 0.6 oz pur e alcohol) Sex Assigned at Date Recorded Not on file Last Filed Vital Signs Vital Sign Reading Time Taken Comments Blood Pressure 118/69 10/13/2019 9:40 AM EST Pulse 76 10/13/2019 9:40 AM EST Temperature 37.1 ??C (98.8 ??F) 10/13/2019 9:40 AM ES T Respiratory Rate 20 10/13/2019 9:40 AM EST Oxygen Saturation 99% 10/13/2019 9:40 AM EST Inhaled Oxygen Concentration - - Weight 130.7 kg (288 lb 3.2 oz) 10/13/2019 9:40 AM EST Height 170.2 cm (5' 7 ) 10/13/2019 9:4 0 AM EST Body Mass Index 45.14 10/13/2019 9:40 AM EST Plan of Treatment Health Maintenance Due Date Last Done Comments Covid-19 Vaccine (#1) 1992 CHOLESTEROL SCREENING 02/04/2018 02/04/2013 BASELINE HEALTH EXAM 18-39 01/09/201901/09, 12/31/2012, 08/17/2012 CERVICAL CANCER SCREENING 08/01/2021 08/01/2018, 02/2015 DTAP/TDAP/TD (2 - Td or Tdap) 01/10/2024 01/09/2014 BMI CHECK/ADVISE 08/28/2024 08/01/2018, , 10/09/2015, Additional history exists DEPRESSION SCREENING/FOLLOWUP 08/28/2024 SOCIAL NEEDS SCREENING 08/28/2024 INFLUENZA (Season Ended) 2025 08/17/2012, 10/2010 PNEUMOCOCCAL VACCINE FOR HIG H RISK PATIENTS (#2) 01/11/2057 2014 (Refused) Care Teams Technical Writer And Editor Relationship Specialty Start Date End Date Bessie Mclain MD PCP - General 12/10/10
== END ==
LOC: HO.HBST 13:13
PROVIDERS: PCP Internal Medicine; Visit Provider Counselor Mental Health
DX: F43.9 Reaction to severe stress, unspecified (principal)
CPT/HCPCS: 90834

== ENCOUNTER → 2024-11-27 13:13 | Outpatient (BNVA) | payer OTHER, SELFPAY | PROVIDERS: PCP Internal Medicine; Visit Provider Counselor Mental Health ==

== ENCOUNTER 2024-12-20 14:11 | Outpatient (AMB) | payer OTHER, SELFPAY ==
--- NOTE | 2024-12-20 08:09 | MHC.OFFVISWM ---
VS Expanded 12/20/24 08:10 Height 5 ft 8 in Weight 230 lb BMI 35.0 Intake Visit Reasons: (TV) PO LSG 10/09/2024 Industrial Plant Custodian Required: No Allergies cat dander Allergy (Intermediate, Verified 11/06/24 14:42) sneezing, asthma, itch Medication List - Last Reconciled 12/20/24 by MATT Bean albuterol sulfate 90 mcg/actuation (Ventolin HFA) 2 puffs inhalation Q6H PRN pantoprazole 40 mg PO DAILY sucralfate 10 mL PO BID HPI Comments Details: This?a?34?yo female who is s/p LSG without hiatal hernia repair on?10/09/2024. Presents for 2 month post op visit. Weight today is 230 pounds, with a BMI of 35. There has been a 70.6 pound weight loss,(initial weight 300.6 pounds) since starting the program on 06/05/2024 reflecting a 23.4 % total body weight loss and a weight loss of 44.3 pounds since surgery (operative weight 274.3 pounds) reflecting a 16.1 % TBWL since surgery. No complaints of nausea, emesis, abdominal pain or reflux. Reports infrequent but normal bowel movements every 3 days and uses stool softeners regularly. taking MVI States she is switching between celebrate 4 in 1 and rebuild. She feels as though things are going well. No complaints. Over Easter she had some ham, mac and cheese and cake. Not tracking forks at her meal, maybe 5 of protein and 3 of veggies. Present meal plan includes: 730-11 celebrate rebuild 2 scoops in 8 oz water celebrate bar 12-2 another shake with celebrate 4 in 1, 2 scoops in 8 oz water 3-5 meal at 6 with 3 forks eggs or cottage cheese or yogurt drinking 80 oz water ? Exercise routine includes: treadmill, daily, 350 [address] 3 mile outside walk 1 x per week. [facility] Medical History (Updated 10/18/24 @ 00:00 by Background Daemon) Physical exam control counseling Sinusitis, acute Headache Counseling for control, oral contraceptives Cervical cancer screening Well woman exam with routine gynecological exam Potential exposure to STD GERD (gastroesophageal reflux disease) Morbid obesity Vertigo Asthma Surgical History (Reviewed 11/06/24 @ 14:42 by Viktoria Jennings [facility]) S/P laparoscopic sleeve gastrectomy History of esophagogastroduodenoscopy (EGD) Hx of cholecystectomy Family History (Reviewed 11/06/24 @ 14:42 by Viktoria Jennings [facility]) Paternal Grandmother Thyroid cancer Maternal Grandmother Breast cancer Family/Other Mental health disorder Substance use disorder Mother Asthma Mental health disorder Lupus Father No problems noted. Son Acute Lyme disease Social History (Reviewed 11/06/24 @ 14:42 by Viktoria Jennings [facility]) Household Members: Spouse and Family Housing: Apartment Are you a primary child care counselor to a significant other at home: No Do you presently have visiting nurse or other home services: No Alcohol intake: current Alcohol intake frequency: holidays/special occasions only Alcohol type: beer Patient Tobacco Use Status: Never used Tobacco e-Cigarette/Vaping Use: Never Used Second Hand Smoke Exposure: No service: No Current occupational status: employed Current occupational exposures/hazards: No Sexual orientation: Straight/Heterosexual Gender identity: Female Cognitive needs: No Hearing needs: No Vision needs: Yes Female Reproductive History Menstrual Age of Menarche: 15 Telehealth Telehealth Telehealth Platform: Telephone Location of provider rendering services: practice address Location of patient: address on file Patient Identification confirmed using: Name, : Yes Telehealth method: voice only Patient verbally consented to treatment: Yes Patient verbally consented to billing insurance company: Yes Patient informed of any privacy concerns related to visit: Yes Minutes spent on Phone/Video with Pt.: 15 Assessment & Plan Assessment & Plan (1) S/P laparoscopic sleeve gastrectomy: Code(s): Z98.84 - Bariatric surgery status Category: Surgical Plan: Except for some dietary indiscretion over [facility], she is doing fairly well. She continues to exercise on a daily basis. We discussed the importance of continuing to follow the meal plan. We have removed the evening protein bar as she is not eating it. 730-11 celebrate rebuild 2 scoops in 8 oz water celebrate bar or Senegalese yogurt 12-2 another shake with celebrate 4 in 1, 2 scoops in 8 oz water 3-5 meal at 6 with 4 forks protein and 4 forks vegetables Return to clinic 1 month. She was encouraged to continue to communicate weekly with her weight is and text with any questions or concerns
[2024-12-20 08:10] VITALS: BMI 35.0
--- OUTSIDE RECORDS SUMMARY | 2024-12-20 14:52 | XMS_ITS | Encounter Summary ---
Author Organization [facility] Address [address] [place] [address] Care Team Providers Care Multimedia Producer Name Role Phone Bessie Mclain MD Primary Care Provider Unava ilable Encounter Details Date Type Department Care Team Description 09/04/2015 Propeller Mechanic Report Medical Records [address] [place] [address] Sadiq Segundo MD Social History Tobacco Use [...] on filedocumented in this encounter Care Teams Multimedia Producer Relationship Specialty Start Date End Date Bessie Mclain MD PCP - General 12/10/10 documented as of this encounter
--- OUTSIDE RECORDS SUMMARY | 2024-12-20 14:53 | XMS_ITS | Encounter Summary ---
Author Organization [facility] Address [address] [place] [address] Care Team Providers Care Piano Professor Name Role Phone Bessie Mclain MD Primary Care Provider Unava ilable Encounter Details Date Type Department Care Team Description 12/13/2010 Release of Information Medical Records [address] [place] [id number] Abstract, Provider Social History Tobacco Use Types [...] on filedocumented in this encounter Care Teams Piano Professor Relationship Specialty Start Date End Date Bessie Mclain MD PCP - General 12/10/10 documented as of this encounter
--- OUTSIDE RECORDS SUMMARY | 2024-12-20 14:53 | XMS_ITS | Clinical Summary ---
Author Organization [facility] Address [address] [place] [address] Care Team Providers Care Hold Worker Name Role Phone Bessie Mclain MD Primary [...] PATIENTS (#2) 01/11/2057 2014 (Refused) Care Teams Hold Worker Relationship Specialty Start Date End Date Bessie Mclain MD PCP - General 12/10/10
--- OUTSIDE RECORDS SUMMARY | 2024-12-20 14:53 | XMS_ITS | Encounter Summary ---
Author Organization [facility] Address [address] [place] [address] Care Team Providers Care Roulette Dealer Name Role Phone Bessie Mclain MD Primary Care Provider Unava ilable Encounter Details Date Type Department Care Team Description 07/19/2019 Release of Information Medical Records [address] [place] [address] Abstract, Provider Social History Tobacco Use Types [...] on filedocumented in this encounter Care Teams Roulette Dealer Relationship Specialty Start Date End Date Bessie Mclain MD PCP - General 12/10/10 documented as of this encounter
== END 2024-12-20 14:13 | disposition home or self-care (01) ==
LOC: HO.HBS 14:12
PROVIDERS: PCP Internal Medicine; Visit Provider Physician Assistant Surgical
DX: Z98.84 Bariatric surgery status (principal)
CPT/HCPCS: 99024

== ENCOUNTER → 2024-12-20 14:11 | Outpatient (BNVA) | payer OTHER, SELFPAY | PROVIDERS: PCP Internal Medicine; Visit Provider Physician Assistant Surgical | DX: Z48.815 Encounter for surgical aftercare following surgery on the digestive system (principal); Z98.84 Bariatric surgery status | CPT/HCPCS: 99212 ==

== ENCOUNTER 2025-01-22 14:30 | Outpatient (AMB) | payer OTHER, SELFPAY ==
--- NOTE | 2025-01-21 10:49 | MHC.OFFVISWM ---
VS Expanded 01/22/25 12:45 Height 5 ft 8 in Weight 217 lb 1 oz BMI 33.0 Intake Visit Reasons: (TV) PO LSG 10/09/2024 Junction Maker Required: No Allergies cat dander Allergy (Intermediate, Verified 11/06/24 14:42) sneezing, asthma, itch Medication List - Last Reconciled 01/22/25 by MATT Bean albuterol sulfate 90 mcg/actuation (Ventolin HFA) 2 puffs inhalation Q6H PRN pantoprazole 40 mg PO DAILY sucralfate 10 mL PO BID HPI Comments Details: This?a?34?yo female who is s/p LSG without hiatal hernia repair on?10/09/2024. Presents for 3 month post op visit. Weight today is 217.1 pounds, with a BMI of 33. There has been a 83.5 pound weight loss,(initial weight 300.6 pounds) since starting the program on 06/05/2024 reflecting a 27.7 % total body weight loss and a weight loss of 57.2 pounds since surgery (operative weight 274.3 pounds) reflecting a 20.8 % TBWL since surgery. No complaints of nausea, emesis, abdominal pain or reflux. Reports infrequent but normal bowel movements every 3 days and uses stool softeners regularly. taking MVI She is not exercising due to busy sports schedule with her son. Present meal plan includes: 7- 9 celebrate rebuild 2 scoops in 8 oz water celebrate bar or [place] Citizen yogurt 1 pm another shake, 2 scoops in 8 oz water at 5 celebrate bar, 8 pm drinking 32 oz water ? Exercise routine includes: none in 1 month treadmill at home [facility] Medical History (Updated 10/18/24 @ 00:00 by [facility]) Physical exam control counseling Sinusitis, acute Headache Counseling for control, oral contraceptives Cervical cancer screening Well woman exam with routine gynecological exam Potential exposure to STD GERD (gastroesophageal reflux disease) Morbid obesity Vertigo Asthma Surgical History S/P laparoscopic sleeve gastrectomy History of esophagogastroduodenoscopy (EGD) Hx of cholecystectomy Family History Paternal Grandmother Thyroid cancer Maternal Grandmother Breast cancer Family/Other Mental health disorder Substance use disorder Mother Asthma Mental health disorder Lupus Father No problems noted. Son Acute Lyme disease Social History Household Members: Spouse and Family Housing: Apartment Are you a primary animal daycare provider to a significant other at home: No Do you presently have visiting nurse or other home services: No Alcohol intake: current Alcohol intake frequency: holidays/special occasions only Alcohol type: beer Patient Tobacco Use Status: Never used Tobacco e-Cigarette/Vaping Use: Never Used Second Hand Smoke Exposure: No service: No Current occupational status: employed Current occupational exposures/hazards: No Sexual orientation: Straight/Heterosexual Gender identity: Female Cognitive needs: No Hearing needs: No Vision needs: Yes Female Reproductive History Menstrual Age of Menarche: 15 Telehealth Telehealth Telehealth Platform: Telephone Location of provider rendering services: practice address Location of patient: address on file Patient Identification confirmed using: Name, : Yes Telehealth method: voice only Patient verbally consented to treatment: Yes Patient verbally consented to billing insurance company: Yes Patient informed of any privacy concerns related to visit: Yes Minutes spent on Phone/Video with Pt.: 15 Assessment & Plan Assessment & Plan (1) S/P laparoscopic sleeve gastrectomy: Code(s): Z98.84 - Bariatric surgery status Category: Surgical Plan: change meal plan: rebuild 2 scoops 7-9 celebrate bar 11-1 another shake 3-5 frisian yogurt 6 or meal with 4 forks protein and 4 forks veg resume exerciae text weights weekly rtc 4 weeks
[2025-01-22 12:45] VITALS: BMI 33.0
== END 2025-01-22 14:49 | disposition home or self-care (01) ==
LOC: HO.HBS 14:48
PROVIDERS: PCP Internal Medicine; Visit Provider Physician Assistant Surgical
DX: E66.9 Obesity, unspecified (principal); Z68.33 Body mass index [BMI] 33.0-33.9, adult; Z90.3 Acquired absence of stomach [part of]; Z98.84 Bariatric surgery status
CPT/HCPCS: 99213

== ENCOUNTER 2025-03-03 14:00 | Outpatient (AMB) | payer OTHER, SELFPAY ==
--- NOTE | 2025-03-03 09:35 | A.OFFVIS_ITS ---
VS Expanded 03/03/25 09:36 Height 5 ft 8 in Weight 206 lb 6 oz BMI 31.4 Body Fat % 45 Body Fat Mass 93 Fat Free Mass 113.6 Visceral Fat Rating 11 Body Water % 41.4 Body Water Mass 85.5 Muscle Mass/Score 106.5 Basal Metabolic Rate/Score 1,651 Intake Visit Reasons: (TV) PO LSG 10/09/2024 Allergies cat dander Allergy (Intermediate, Verified 11/06/24 14:42) sneezing, asthma, itch HPI Comments Details: This?a?35?yo female who is s/p LSG without hiatal hernia repair on?10/09/2024. Presents for 5 month post op visit. Weight today is 206.6 pounds, with a BMI of 31.4. There has been a 94 pound weight loss,(initial weight 300.6 pounds) since starting the program on 06/05/2024 reflecting a 31.2 % total body weight loss and a weight loss of 67.7 pounds since surgery (operative weight 274.3 pounds) reflecting a 24.6 % TBWL since surgery. No complaints of nausea, emesis, abdominal pain or reflux. Reports infrequent but normal bowel movements every 3 days and uses stool softeners regularly. taking MVI She is not exercising due to busy sports schedule with her son. She is following the meal plan but only to a point and she states she is not eating enough. She is skipping her meals or shakes or bars. She is unable to identify how often she is not following the plans. Present meal plan includes: rebuild 2 scoops 7-9 celebrate bar 11-1 another shake 3-5 cypriot yogurt 6 or meal with 4 forks protein and 4 forks veg drinking 40 oz water ? Exercise routine includes: treadmill at home, 5-6 days per week, 300-350 leodan, speed [facility] Medical History (Updated 10/18/24 @ 00:00 by Jarocho Cisneros) Physical exam control counseling Sinusitis, acute Headache Counseling for control, oral contraceptives Cervical cancer screening Well woman exam with routine gynecological exam Potential exposure to STD GERD (gastroesophageal reflux disease) Morbid obesity Vertigo Asthma Surgical History S/P laparoscopic sleeve gastrectomy History of esophagogastroduodenoscopy (EGD) Hx of cholecystectomy Family History Paternal Grandmother Thyroid cancer Maternal Grandmother Breast cancer Family/Other Mental health disorder Substance use disorder Mother Asthma Mental health disorder Lupus Father No problems noted. Son Acute Lyme disease Social History Household Members: Spouse and Family Housing: Apartment Are you a primary overnight caregiver to a significant other at home: No Do you presently have visiting nurse or other home services: No Alcohol intake: current Alcohol intake frequency: holidays/special occasions only Alcohol type: beer Patient Tobacco Use Status: Never used Tobacco e-Cigarette/Vaping Use: Never Used Second Hand Smoke Exposure: No service: No Current occupational status: employed Current occupational exposures/hazards: No Sexual orientation: Straight/Heterosexual Gender identity: Female Cognitive needs: No Hearing needs: No Vision needs: Yes Female Reproductive History Menstrual Age of Menarche: 15 Telehealth Telehealth Telehealth Platform: Telephone Location of provider rendering services: practice address Location of patient: address on file Patient Identification confirmed using: Name, : Yes Telehealth method: voice only Patient verbally consented to treatment: Yes Patient verbally consented to billing insurance company: Yes Patient informed of any privacy concerns related to visit: Yes Minutes spent on Phone/Video with Pt.: 15 Assessment & Plan Assessment & Plan (1) S/P laparoscopic sleeve gastrectomy: Code(s): Z98.84 - Bariatric surgery status Category: Surgical Plan: Discussed the importance of following the meal plan exactly, identifying exactly how much she is drinking, identifying the statistics with her exercise so that we may be able to make accurate recommendations based on data. She will text me with this information today or tomorrow. Specifically asking for how much fluids she is drinking, how many calories she has burning on the treadmill, the speed and incline of her treadmill, additionally not skipping anything in her meal plan.
[2025-03-03 09:36] VITALS: BMI 31.4
== END 2025-03-03 14:26 | disposition home or self-care (01) ==
LOC: HO.HBS 14:25
PROVIDERS: PCP Internal Medicine; Visit Provider Physician Assistant Surgical
DX: E66.3 Overweight (principal); Z68.31 Body mass index [BMI] 31.0-31.9, adult; Z90.3 Acquired absence of stomach [part of]; Z98.84 Bariatric surgery status
CPT/HCPCS: 98013

== ENCOUNTER 2025-04-11 13:25 | Outpatient (AMB) | payer OTHER, SELFPAY ==
[2025-04-11 08:19] VITALS: BMI 29.9
--- NOTE | 2025-04-11 08:19 | MHC.OFFVISWM ---
VS Expanded 04/11/25 08:19 Height 5 ft 8 in Weight 196 lb 8 oz BMI 29.9 Body Fat % 43.3 Body Fat Mass 85.1 Fat Free Mass 111.7 Visceral Fat Rating 10 Body Water % 42.2 Body Water Mass 82.9 Muscle Mass/Score 104.5 Basal Metabolic Rate/Score 1,604 Intake Visit Reasons: (TV) PO LSG 10/09/2024 Cook Ship Required: No Allergies cat dander Allergy (Intermediate, Verified 11/06/24 14:42) sneezing, asthma, itch Medication List - Last Reconciled 04/11/25 by MATT Bean albuterol sulfate 90 mcg/actuation (Ventolin HFA) 2 puffs inhalation Q6H PRN HPI Comments Details: This?a?35?yo female who is s/p LSG without hiatal hernia repair on?10/09/2024. Presents for 6 month post op visit. Weight today is 196.8 pounds, with a BMI of 29.9. There has been a 103.8 pound weight loss,(initial weight 300.6 pounds) since starting the program on 06/05/2024 reflecting a 34.5 % total body weight loss and a weight loss of 77.5 pounds since surgery (operative weight 274.3 pounds) reflecting a 28.2 % TBWL since surgery. No complaints of nausea, emesis, abdominal pain or reflux. Reports infrequent but normal bowel movements every 3 days and uses stool softeners regularly. taking Vit C, D, biotin She is not exercising due to busy sports schedule with her son. She is following the meal plan but only to a point and she states she is not eating enough. She is skipping her meals or shakes or bars. She is unable to identify how often she is not following the plans. She stopped eating protein bars due to nausea. changed to another shake without direction Present meal plan includes: rebuild 2 scoops 7-9 another shake 11-1 another shake 3-5 6 pm or meal with 4 forks protein and 4 forks veg drinking 64 oz water ? Exercise routine includes: treadmill at home, 7 days per week, speed 3-4, incline 3-4, over an hour Any post op complications: none UZAIR: never DM: never HTN: never Hyperlipidemia: never GERD:?0-5 scale ??0 = no symptoms ??1 = symptoms noticeable but not bothersome 2 =symptoms bothersome but not daily ? 3 = symptoms bothersome and daily 4 = symptoms affect daily activities 5 = symptoms are incapacitating, unable to do daily activities ? How bad is the heartburn: 0 ? Heartburn while lying down: 0 ? Heartburn when standing up: 0 ? Heartburn after meals: 0 ? Does heartburn change your diet: 0 ? Does heartburn wake you up from sleep: 0 ? Do you have difficulty swallowin ? Do you have pain with swallowin ? If you take medicine for your reflux, does this affect your daily life: 0 Satisfaction with present condition - satisfied or not satisfied: satisfied [facility] Medical History (Updated 10/18/24 @ 00:00 by [facility]) Physical exam control counseling Sinusitis, acute Headache Counseling for control, oral contraceptives Cervical cancer screening Well woman exam with routine gynecological exam Potential exposure to STD GERD (gastroesophageal reflux disease) Morbid obesity Vertigo Asthma Surgical History S/P laparoscopic sleeve gastrectomy History of esophagogastroduodenoscopy (EGD) Hx of cholecystectomy Family History Paternal Grandmother Thyroid cancer Maternal Grandmother Breast cancer Family/Other Mental health disorder Substance use disorder Mother Asthma Mental health disorder Lupus Father No problems noted. Son Acute Lyme disease Social History Household Members: Spouse and Family Housing: Apartment Are you a primary rn progressive care unit to a significant other at home: No Do you presently have visiting nurse or other home services: No Alcohol intake: current Alcohol intake frequency: holidays/special occasions only Alcohol type: beer Patient Tobacco Use Status: Never used Tobacco e-Cigarette/Vaping Use: Never Used Second Hand Smoke Exposure: No service: No Current occupational status: employed Current occupational exposures/hazards: No Sexual orientation: Straight/Heterosexual Gender identity: Female Cognitive needs: No Hearing needs: No Vision needs: Yes Female Reproductive History Menstrual Age of Menarche: 15 Telehealth Telehealth Telehealth Platform: Telephone Location of provider rendering services: practice address Location of patient: address on file Patient Identification confirmed using: Name, : Yes Telehealth method: voice only Patient verbally consented to treatment: Yes Patient verbally consented to billing insurance company: Yes Patient informed of any privacy concerns related to visit: Yes Minutes spent on Phone/Video with Pt.: 15 Assessment & Plan Assessment & Plan (1) S/P laparoscopic sleeve gastrectomy: Code(s): Z98.84 - Bariatric surgery status Category: Surgical Plan: Discussed the importance of following the meal plan, communicating if she has any questions or concerns. We will recommend the following Celebrate rebuild 2 scoops Celebrate rebuild 1 scoop Celebrate rebuild 2 scoops Meal with 5 forks of protein and 5 forks of vegetables Encouraged to increase exercise maintaining speed of 3.5 on the treadmill, incline 2-6 with a goal of burning 350 calories, 7 days per week. She certainly may do more if she wishes and increasing incline as her exercise tolerance allows. We will check six-month postop labs, additionally, encouraged to take a bariatric multivitamin daily. Further recommendations based upon lab data. Return to clinic 2 months Orders: Orders Insulin Today E50.9 - Vitamin A deficiency, unspecified, E53.8 - Deficiency of other specified B group vitamins, E55.9 - Vitamin D deficiency, unspecified, Z98.84 - Bariatric surgery status Complete Blood Count Auto Diff Today E50.9 - Vitamin A deficiency, unspecified, E53.8 - Deficiency of other specified B group vitamins, E55.9 - Vitamin D deficiency, unspecified, Z98.84 - Bariatric surgery status Comprehensive Met. Panel Today E50.9 - Vitamin A deficiency, unspecified, E53.8 - Deficiency of other specified B group vitamins, E55.9 - Vitamin D deficiency, unspecified, Z98.84 - Bariatric surgery status Zinc Today E50.9 - Vitamin A deficiency, unspecified, E53.8 - Deficiency of other specified B group vitamins, E55.9 - Vitamin D deficiency, unspecified, Z98.84 - Bariatric surgery status Vitamin B1 Today E50.9 - Vitamin A deficiency, unspecified, E53.8 - Deficiency of other specified B group vitamins, E55.9 - Vitamin D deficiency, unspecified, Z98.84 - Bariatric surgery status Ferritin Today E50.9 - Vitamin A deficiency, unspecified, E53.8 - Deficiency of other specified B group vitamins, E55.9 - Vitamin D deficiency, unspecified, Z98.84 - Bariatric surgery status Hemoglobin A1c Today E50.9 - Vitamin A deficiency, unspecified, E53.8 - Deficiency of other specified B group vitamins, E55.9 - Vitamin D deficiency, unspecified, Z98.84 - Bariatric surgery status Lipid Panel Today E50.9 - Vitamin A deficiency, unspecified, E53.8 - Deficiency of other specified B group vitamins, E55.9 - Vitamin D deficiency, unspecified, Z98.84 - Bariatric surgery status IRON PROFILE Today E50.9 - Vitamin A deficiency, unspecified, E53.8 - Deficiency of other specified B group vitamins, E55.9 - Vitamin D deficiency, unspecified, Z98.84 - Bariatric surgery status Vitamin B12 and Folate Today E50.9 - Vitamin A deficiency, unspecified, E53.8 - Deficiency of other specified B group vitamins, E55.9 - Vitamin D deficiency, unspecified, Z98.84 - Bariatric surgery status C Reactive Protein Today E50.9 - Vitamin A deficiency, unspecified, E53.8 - Deficiency of other specified B group vitamins, E55.9 - Vitamin D deficiency, unspecified, Z98.84 - Bariatric surgery status Vitamin A Today E50.9 - Vitamin A deficiency, unspecified, E53.8 - Deficiency of other specified B group vitamins, E55.9 - Vitamin D deficiency, unspecified, Z98.84 - Bariatric surgery status TSH reflex Free T4 Today E50.9 - Vitamin A deficiency, unspecified, E53.8 - Deficiency of other specified B group vitamins, E55.9 - Vitamin D deficiency, unspecified, Z98.84 - Bariatric surgery status Vitamin D 25-OH Total Today E50.9 - Vitamin A deficiency, unspecified, E53.8 - Deficiency of other specified B group vitamins, E55.9 - Vitamin D deficiency, unspecified, Z98.84 - Bariatric surgery status
--- OUTSIDE RECORDS SUMMARY | 2025-04-11 13:27 | XMS_ITS | Clinical Summary ---
Author Organization [facility] Address [address] [place] [id number] Phone Care Team Providers Care Sales Floor Manager Name Role Phone Kiya Olivares MD Primary Care Provid er Allergies No known active allergies Medications albuterol 90 mcg/actuation inhaler Inhale 2 puffs into the lungs every 6 (six) hours as needed for wheezing. Active penicillin V potassium (VEETIDS) 500 MG tablet Take 1 tablet (500 mg total) by mouth 2 (two) times a day. Take w food, yogurt, probiotics. Finish all. 20 tablet 10/22/2022 Active Active Problems No known active problems Social History Tobacco Use Types Packs/Day Years Used Date Smoking Tobacco: Never Assessed Education Answer Date Recorded Are you interested in more education? Not on concha e 12/23/2022 Are you concerned about learning? Not on file 12/23/2022 No 12/23/2022 No 12/23/2022 Digital Access Answer Date Recorded No 01/20/2023 No 01/20/2023 Reliable internet access at home? Not on file 01/20/2023 Device with a working camera? Not on file Comments Unknown Sex and Gender Information Value Date Recorded Sex Assigned at Not on file Legal Sex Female 8:59 PM EDT Gender Identity Not on file Sexual Orientation Not on file Last Filed Vital Signs Vital Sign Reading Time Taken Comments Blood Pressure 115/59 10/22/2022 11:17 AM EST Pulse 64 10/22/2022 11:17 AM EST Temperature 36.8 C (98.2 F) 10/22/2022 11:17 AM EST Respiratory Rate 18 10/22/2022 11:17 AM EST Oxygen Saturation 100% 10/22/2022 11:17 AM EST Inhaled Oxygen Concentration - - Weight 90.7 kg (200 lb) 10/22/2022 11:17 AM EST Height 172.7 cm (5' 8 ) 10/22/2022 11:17 AM EST Body Mass Index 30.41 10/22/2022 11:17 AM EST Plan of Treatment Health Maintenance Due Date Last Done Comments DEPRESSION SCREENING 2004 SMOKING Hx and SMOKELESS TOB ACCO SCREENING 01/11/2005 HEPATITIS C SCREENING 01/11/2010 HIV ONE-TIME SCREENING (18-6 5 YEARS) 01/11/2010 PAP SMEAR 01/11/2013 Adult Td,Tdap Booster 01/10/2024 01/09/2014 COVID-19 VACCINE (2023-2 5 season) 2024 HEPATITIS A VACCINES Aged Out No long er eligible based on patient's age to complete this topic HIB VACCINES Aged Out No longer eligi ble based on patient's age to complete this topic MENINGOCOCCAL VACCINES (ACWY) Aged Out No longer eligible based on patient's age to complete this topic MENINGOCOCCAL VACCINES (B) Aged Out N o longer eligible based on patient's age to complete this topic PNEUMOCOCCAL VACCINES (0-49 years) Aged Out No longer eligible based on patient's age to complete this topic Medical Devices Not on file Insurance [employer] NON NSPG PCP [facility] P[facility] SILVER CLARITY CONNECTORCARE [employer] NON NSPG PCP SILVER CLARITY CONNECTORCARE [employer] NON NSPG PCP SILVER CLARITY CONNECTORCARE [employer] NON NSPG PCP [facility]ARITY CONNE[facility] NON NSPG [facility] Care Teams Sales Floor Manager Relationship Specialty Start Date End Date Kiya Olivares MD [address] [place] [address] PCP - General Internal Medicine 10/22/22 Additional Source Comments The information contained in this document represents components of the legal health record. It is not the complete legal health record.[facility]
== END 2025-04-11 13:30 | disposition home or self-care (01) ==
LOC: HO.HBS 13:25
PROVIDERS: PCP Internal Medicine; Visit Provider Physician Assistant Surgical
DX: E66.3 Overweight (principal); Z68.29 Body mass index [BMI] 29.0-29.9, adult; Z90.3 Acquired absence of stomach [part of]; Z98.84 Bariatric surgery status
CPT/HCPCS: 98013

== ENCOUNTER 2025-06-23 13:13 | Outpatient (AMB) | payer OTHER, SELFPAY ==
--- NOTE | 2025-06-23 13:05 | MHC.OFFVISWM ---
VS Expanded 06/23/25 13:08 Height 5 ft 6 in Weight 184 lb BMI 29.7 Intake Visit Reasons: (TV) PO LSG 10/09/2024 Allergies cat dander Allergy (Intermediate, Verified 11/06/24 14:42) sneezing, asthma, itch Medication List - Last Reconciled 06/23/25 by MATT Cabrera albuterol sulfate 90 mcg/actuation (Ventolin HFA) 2 puffs inhalation Q6H PRN HPI Comments Details: This a 35 yo female who is s/p LSG without hiatal hernia repair on 10/09/2024. Presents for 8 month post op visit. Weight today is 196.8 pounds, with a BMI of 29.9. Initial weight 300.6 pounds and operative weight 274.3 pounds. No complaints of nausea, emesis, abdominal pain or reflux. Reports infrequent but normal bowel movements every 3 days and uses stool softeners regularly. Previously stopped eating protein bars due to nausea. She still has restriction and cannot tolerate beyond what meal plan is listed in forkfuls. Present meal plan includes: Celebrate rebuild 2 scoops Celebrate rebuild 1 scoop Celebrate rebuild 2 scoops Meal with 5 forks of protein and 5 forks of vegetables - changed at last visit- going fine per pt taking Vit C, D, biotin drinking 64 oz water Exercise routine includes: treadmill at home, 7 days per week, speed 3-4, incline 3-4, over an hour She reports issues of excess skin of the abdomen that have become more noticeable. She experiences rashes and open sores in skin folds, sometimes has difficulty finding comfortable underwear that doesn't irritate the area. She has not tried any topical treatments yet. Notices an unpleasant odor in the skin folds, has to wash more frequently. Has to wear a compressive waistband with pants to prevent discomfort particularly with movement. Normal daily activities such as squatting down are more difficult; she has an active job and sometimes the weight of the excess skin pulls on her back and causes discomfort; standing for long periods during dental surgeries is difficult due to the excess skin. [facility] Medical History (Updated 06/23/25 @ 13:29 by MATT Cabrera) Physical exam control counseling Sinusitis, acute Headache Counseling for control, oral contraceptives Cervical cancer screening Well woman exam with routine gynecological exam Potential exposure to STD GERD (gastroesophageal reflux disease) Morbid obesity Vertigo Asthma Surgical History S/P laparoscopic sleeve gastrectomy History of esophagogastroduodenoscopy (EGD) Hx of cholecystectomy Family History Paternal Grandmother Thyroid cancer Maternal Grandmother Breast cancer Family/Other Mental health disorder Substance use disorder Mother Asthma Mental health disorder Lupus Father No problems noted. Son Acute Lyme disease Social History Household Members: Spouse and Family Housing: Apartment Are you a primary career development facilitator to a significant other at home: No Do you presently have visiting nurse or other home services: No Alcohol intake: current Alcohol intake frequency: holidays/special occasions only Alcohol type: beer Patient Tobacco Use Status: Never used Tobacco e-Cigarette/Vaping Use: Never Used Second Hand Smoke Exposure: No service: No Current occupational status: employed Current occupational exposures/hazards: No Sexual orientation: Straight/Heterosexual Gender identity: Female Cognitive needs: No Hearing needs: No Vision needs: Yes Female Reproductive History Menstrual Age of Menarche: 15 Telehealth Telehealth Telehealth Platform: Telephone Location of provider rendering services: practice address Location of patient: address on file Patient Identification confirmed using: Name, : Yes Telehealth method: voice only Patient verbally consented to treatment: Yes Patient verbally consented to billing insurance company: Yes Patient informed of any privacy concerns related to visit: Yes Minutes spent on Phone/Video with Pt.: 23 Assessment & Plan Assessment & Plan (1) S/P laparoscopic sleeve gastrectomy: Code(s): Z98.84 - Bariatric surgery status Category: Surgical (2) Overweight: Code(s): E66.3 - Overweight Category: Medical (3) Excess skin: Code(s): L98.7 - Excessive and redundant skin and subcutaneous tissue Category: Medical Plan Pt is consistent with meal plan, needs to increase exercise again and she is aware of this and committed to restarting today. She plans to have labs done next week. We discussed insurance approval for panniculectomy. Goal weight 167lb for BMI < 27. Clotrimazole ointment sent to pharmacy. RTC in Sep for in person appt (photos and physical exam). Medications: New clotrimazole 1% 1 appl topical BID 45 grams 3RF
[2025-06-23 13:08] VITALS: BMI 29.7
--- OUTSIDE RECORDS SUMMARY | 2025-06-23 16:50 | XMS_ITS | Clinical Summary ---
Author Organization [facility] Address [address] [place] [phone] Phone Care Team Providers Care Decorating Consultant Name Role Phone Kiya Olivares MD Primary [...] DEPRESSION SCREENING 2004 SMOKING Hx and SMOKELESS TOBACCO SCREENING 01/11/2005 HEPATITIS C SCREENING 01/11/2010 HIV ONE-TIME SCREENING (18-6 5 YEARS) 01/11/2010 PAP SMEAR 01/11/2013 Adult Td,Tdap Booster 01/10/2024 01/09/2014 INFLUENZA VACCINE (#1) 2025 2, 05/30/2011 COVID-19 VACCINE (2024-2 6 season) 2025 HEPATITIS A VACCINES Aged Out No long [...] (0-49 years) Aged Out No longer eligible b ased on patient's age to complete this topic Medical Devices Not on file Insurance [facility] PCP [facility] [facility] WELLSENSE NON NSPG PCP SILVER [employer]ITY CONNECTORCARE WELLSENSE NON NSPG PCP SILVER CLARITY CONNECTORCARE WELLSENSE NON NSPG PCP SILVER CLARITY CONNECTORCARE WELLSENSE NON NSPG PCP S[facility] PCP [place] CONNE[facility]ARE Care Teams Decorating Consultant Relationship Specialty Start Date End Date Kiya Olivares MD [address] [place] [address] PCP - General Internal Medicine 10/22/22 Additional Source Comments The information contained in this document represents components of the legal health record. It is not the complete legal health record.[facility]
== END 2025-06-23 13:30 | disposition home or self-care (01) ==
LOC: HO.HBS 13:13
PROVIDERS: PCP Internal Medicine; Visit Provider Physician Assistant Surgical
DX: E66.3 Overweight (principal); Z68.29 Body mass index [BMI] 29.0-29.9, adult; L98.7 Excessive and redundant skin and subcutaneous tissue; Z98.84 Bariatric surgery status; Z90.3 Acquired absence of stomach [part of]
CPT/HCPCS: 98014

== ENCOUNTER → 2025-06-23 13:13 | Outpatient (BNVA) | payer OTHER, SELFPAY | PROVIDERS: PCP Internal Medicine; Visit Provider Physician Assistant Surgical | DX: Z00.00 Encounter for general adult medical examination without abnormal findings (principal) | CPT/HCPCS: 96127; 99395 ==

== ENCOUNTER 2025-06-23 17:21 | Outpatient (AMB) | payer OTHER, SELFPAY ==
[2025-06-23 17:22] VITALS: BP 124/72; PULSE 56; O2SAT 98; BMI 29.9
--- NOTE | 2025-06-23 17:22 | MHC.PC.OV ---
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 Accompanied by: Self / Same As Patient Allergies cat dander Allergy (Intermediate, Verified 06/23/25 17:31) sneezing, asthma, itch Medication List - Last Reconciled 06/23/25 by Kiya Monroy MD albuterol sulfate 90 mcg/actuation (Ventolin HFA) 2 puffs inhalation Q6H PRN clotrimazole 1% 1 appl topical BID Tobacco use date assessed: 06/23/25 Dental Screening Dental Screen Date: 06/23/25 Did you have a dental visit in the last 12 months?: Yes Did you have a dental problem in the last 6 months where you did not have access to dental care?: No Was dental information given to patient?: Patient has dentist HPI HPI Comments History of Present Illness Details This is a 35-year-old female that comes for her physical exam. Pap smear done 2020 and she follows with OBGYN yearly. Tdap vaccine done 2021. Denies any chest pain or shortness on breath. No acute complaints. [facility] Medical History (Updated 06/23/25 @ 20:35 by Kiya Monroy MD) Physical exam Obesity, morbid, BMI 40.0-49.9 control counseling Sinusitis, acute Headache Counseling for control, oral contraceptives Cervical cancer screening Well woman exam with routine gynecological exam Potential exposure to STD GERD (gastroesophageal reflux disease) Morbid obesity Vertigo Asthma Surgical History S/P laparoscopic sleeve gastrectomy History of esophagogastroduodenoscopy (EGD) Hx of cholecystectomy Family History Paternal Grandmother Thyroid cancer Maternal Grandmother Breast cancer Family/Other Mental health disorder Substance use disorder Mother Asthma Mental health disorder Lupus Father No problems noted. Son Acute Lyme disease Social History Household Members: Spouse and Family Housing: Apartment Are you a primary manager critical care unit to a significant other at home: No Do you presently have visiting nurse or other home services: No Alcohol intake: current Alcohol intake frequency: holidays/special occasions only Alcohol type: beer Patient Tobacco Use Status: Never used Tobacco Tobacco use type: Cigarette e-Cigarette/Vaping Use: Never Used Second Hand Smoke Exposure: No service: No Current occupational status: employed Current occupational exposures/hazards: No Sexual orientation: Straight/Heterosexual Gender identity: Female Cognitive needs: No Hearing needs: No Vision needs: Yes Female Reproductive History Menstrual Age of Menarche: 15 Questionnaire PHQ-9 Over the last 2 weeks, how often have you been bothered by any of the following problems? 1. Little interest or pleasure in doing things: not at all 2. Feeling down, depressed, or hopeless: not at all 3. Trouble falling or staying asleep, or sleeping too much: not at all 4. Feeling tired or having little energy: not at all 5. Poor appetite or overeating: not at all 6. Feeling bad about yourself - or that you are a failure or have let yourself or your family down: not at all 7. Trouble concentrating on things, such as reading the newspaper or watching television: not at all 8. Moving or speaking so slowly that other people could have noticed. Or the opposite - being so fidgety or restless that you have been moving around a lot more than usual: not at all 9. Thoughts that you would be better off or of hurting yourself in some way: not at all Total score: 0 Depression Screening Interpretation: Negative Depression Screening Done: Yes 48439 - PHQ-9 Billing: Yes Source: Developed by Drs. Alex Bowers, Lauren Mason, Praveen Ovalle and colleagues, with an educational jfef from [employer] Thrive Questionnaire Date Thrive assessed: 06/23/25 I am a: Patient What is your living situation today?: I have a steady place to live Within the past 12 months, did the food you bought not last and you didn't have the money to get more?: Never true Within the past 12 months, did you worry whether your food would run out before you got money to buy more?: Never true Do you have trouble paying for medicines?: No Do you have trouble getting transportation to medical appointments?: No Do you have trouble paying your heating and electricity bill?: No Do you have trouble taking care of your child, family member or friend?: No Do you have trouble with day-to-day activities such as bathing, preparing meals, shopping, managing finances, etc.?: No Are you currently unemployed and looking for a job?: No Are you interested in more education?: Yes Please select the resources that you would like help with: None Currently or been in a relationship where the following occur: No concerns reported THRIVE Score: 0 AUDIT C Alcohol Use Questionnaire (AUDIT-C) 1. How often do you have a drink containing alcohol?: 2-4 times a month 2. How many drinks containing alcohol do you have on a typical day when you are drinking?: 1 or 2 3. How often do you have six or more drinks on one occasion?: Never Total Score: 2 Score Reviewed/Action Taken: No MANOJ-7 AMB Questionnaire MANOJ-7 Date MANOJ - 7 assessed: 06/23/25 Feeling nervous, anxious, or on edge: 1 = Several days Not being able to stop or control worryin = Several days Worrying too much about different things: 1 = Several days Trouble relaxin = Not at all Being so restless that it is hard to sit still: 1 = Several days Becoming easily annoyed or irritable: 0 = Not at all Feeling afraid as if something awful might happen: 0 = Not at all Total MANOJ-7 score (0-4 normal; 5-9 mild; 10-14 moderate; 15-21 severe): 4 Source: Developed by Drs. Alex Bowers, Lauren Mason, Praveen Ovalle and colleagues, with an educational jeff from [employer]. MANOJ-7 Assessment Billing MANOJ-7 Assessment Tool: MANOJ-7 Assessment 06583 Review of Systems Const All systems reviewed & are unremarkable except as noted in HPI and below Card Denies chest pain at rest, Denies chest pain with activity, Denies edema, Denies irregular heart rhythm, Denies claudication, Denies dyspnea, Denies dyspnea on exertion, Denies orthopnea, Denies paroxysmal nocturnal dyspnea and Denies slow heart rate Resp Denies cough, Denies dyspnea and Denies dyspnea on exertion GI Denies abdominal pain, Denies change in bowel habits, Denies excessive flatus, Denies nausea and Denies vomiting Denies urinary incontinence, Denies urinary hesitancy and Denies urinary urgency Musc Denies abnormal gait, Denies atrophy, Denies deformity and Denies limited range of motion Skin/Breast Denies bleeding lesions, Denies changing lesions and Denies rash Neuro Denies abnormal gait and Denies lack of coordination Physical exam (Primary Care) Vital Signs: Last Vital Signs Pulse 56 06/23/25 17:22 BP 124/72 06/23/25 17:22 Pulse Ox 98 06/23/25 17:22 Oxygen Delivery Method Room Air 06/23/25 17:22 BMI result Body Mass Index 29.9 Tobacco/Smoking Status: Tobacco use Status Tobacco use date assessed 06/23/25 06/23/25 17:26 Patient Tobacco Use Status Never used Tobacco 06/23/25 17:26 Tobacco use type Cigarette 06/23/25 17:26 e-Cigarette/Vaping Use Never Used 06/23/25 17:26 PHQ-9: PHQ-9 Score PHQ-9: Total score 0 06/23/25 17:35 Depression Screening Interpretation: Negative Thrive Assessment: Date of Thrive Assessment Date Thrive assessed 06/23/25 06/23/25 17:26 Currently or been in a relationship where the following occur: No concerns reported Const Orientation/consciousness: patient oriented x3 [facility] Head: Yes normal to inspection, Yes normocephalic and Yes atraumatic Ears: external ears normal Eyes General: appearance normal, both eyes and all related structures Eyelids: Yes eyelids normal Conjunctivae: conjunctivae normal Neck Neck: Yes normal visual inspection and Yes supple Resp Effort & Inspection: normal respiratory effort Auscultation: clear to auscultation bilaterally Cardio Jugular venous distension: no JVD Rate: regular rate Rhythm: regular rhythm Heart sounds: S1 normal heart sound present and S2 normal heart sound present GI Inspection: Yes normal to inspection Palpation (GI): Soft to palpation and nontender Auscultation: normal bowel sounds Skin General skin exam: no rashes or lesions noted Neuro General: patient oriented x3 and no focal motor deficits Extrem General: Yes full ROM Psych Appearance: grossly normal Coding Level of Care Code Est Pt Prev Care 18-39y(66314) Diagnoses Physical exam Z00.00 Additional Codes MANOJ-7 Assessment Billing - MANOJ-7 Assessment Tool: MANOJ-7 Assessment 39857 ([id number]) PHQ-9 - 55275 - PHQ-9 Billing: Yes ([id number]) Time Spent (min) 30 Assessment & Plan Assessment & Plan (1) Physical exam: Code(s): Z00.00 - Encounter for general adult medical examination without abnormal findings Category: Medical Plan Repeat in a year. Medications: Changed From albuterol sulfate 90 mcg/actuation (Ventolin HFA) 2 puffs inhalation Q6H PRN Shortness Of Breath Or Wheezing To albuterol sulfate 90 mcg/actuation (Ventolin HFA) 2 puffs inhalation Q6H PRN 6.7 grams 2RF Shortness Of Breath Or Wheezing 30 days
== END 2025-06-23 17:41 | disposition home or self-care (01) ==
LOC: HO.HMCH 17:21
PROVIDERS: PCP Internal Medicine; Visit Provider Internal Medicine
DX: Z00.00 Encounter for general adult medical examination without abnormal findings (principal)